=== PATIENT | male | born 1945 | race Caucasian/White ===

== ENCOUNTER 2018-07-19 16:59 | Emergency (ER) | payer OTHER ==
--- NOTE | 2018-07-19 17:11 | PDOC ---
Rapid Medical Evaluation Time Seen by Provider: 07/19/18 17:06 Medical Evaluation: Allergies Allergy/AdvReac Type Severity Reaction Status Date / Time No Known Allergies Allergy Verified 07/19/18 17:06 07/19/18 17:06 I have performed a brief in-person evaluation of the patient The patient presents with a chief complaint of: elevated blood pressure with headache at home Reports no dizziness, blurred vision or chest pressure Pertinent physical exam findings are: NAD HEENT: PERRLA, even and unlabored breathing no pedal edema I have ordered the following: The patient will proceed to the ED for further evaluation.
[2018-07-19 17:14] VITALS: TEMP 97.6; BMI 29.0
--- NOTE | 2018-07-19 17:24 | PDOC ---
History of Present Illness - General Chief Complaint: Blood Pressure Problem Stated Complaint: BLOOD PRESSURE PROBLEM Time Seen by Provider: 07/19/18 17:06 - History of Present Illness Initial Comments: 73 year old male with with history of HTN, IDDM, and anxiety presenting with elevated bp on home cuff readings and a light headache per the triage staff. Patient states that his only complaint is that this pressure was elevated because he frequently gets headaches in the mornings that resolve on their own. He States that he measured his bp 3-4 times at home and all measurements were around 200s systolic. His headache resolved by the time he presented to our department. His machine measures his pressure at the wrist. Denies any fevers, chills, nausea, vomiting, diarrhea, chest pain, visual symptoms, current headache, or other symptoms. He has good follow up with Dr. Bowers. 07/19/18 17:42 Past History - Past Medical History Allergies/Adverse Reactions: Allergies Allergy/AdvReac Type Severity Reaction Status Date / Time No Known Allergies Allergy Verified 07/19/18 17:06 Home Medications: Ambulatory Orders Atenolol [Tenormin -] 50 mg PO DAILY 04/23/14 Insulin Regular, Human [Humulin R -] 15 units SQ TID 04/23/14 Simvastatin [Zocor -] 40 mg PO HS 04/23/14 metFORMIN HCL [Glucophage -] 500 mg PO BID 04/23/14 Aspirin 81 mg PO DAILY 07/19/18 Cholecalciferol (Vitamin D3) [Vitamin D3 -] 1,000 unit PO DAILY 07/19/18 Cyanocobalamin [Vitamin B12 -] 1,000 mcg PO DAILY 07/19/18 Donepezil HCl [Aricept] 10 mg PO DAILY 07/19/18 Duloxetine HCl [Cymbalta -] 60 mg PO DAILY 07/19/18 Escitalopram Oxalate [Lexapro -] 30 mg PO DAILY 07/19/18 Insulin Glargine,Hum.rec.anlog [Lantus Solostar PEN (NF)] 15 units SQ TID LORazepam [Ativan] 1 mg PO ASDIR PRN 07/19/18 Anemia: No Asthma: No Cancer: No Cardiac Disorders: No CVA: No COPD: No CHF: No Dementia: No Diabetes: Yes (2002) GI Disorders: No Disorders: No HTN: Yes Hypercholesterolemia: Yes Liver Disease: No Seizures: No Thyroid Disease: No - Surgical History Abdominal Surgery: No Appendectomy: No Cardiac Surgery: No Cholecystectomy: No Lung Surgery: No Neurologic Surgery: No Orthopedic Surgery: No - Immunization History Immunization Up to Date: Yes - Suicide/Smoking/Psychosocial Hx Smoking Status: No Smoking History: Former smoker Have you smoked in the past 12 months: No Number of Cigarettes Smoked Daily: 0 If you are a former smoker, when did you quit?: 1980S Information on smoking cessation initiated: No Hx Alcohol Use: No Drug/Substance Use Hx: No Substance Use Type: None Hx Substance Use Treatment: No Review of Systems - Review of Systems Constitutional: No: Chills, Diaphoresis, Fever HEENTM: No: Blurred Vision, Tearing Respiratory: No: Cough, Orthopnea, Productive cough Cardiac (ROS): No: Chest Pain, Edema, Irregular Heart Rate ABD/GI: No: Constipated, Diarrhea, Nausea, Vomiting : No: Burning, Dysuria, Discharge, Hematuria Musculoskeletal: No: Back Pain, Joint Pain, Muscle Pain Integumentary: No: Erythema, Flushing, Lesions, Lumps Neurological: Yes: Headache. No: Numbness, Paresthesia Psychiatric: Yes: Anxiety. No: Emotional Problems Endocrine: No: Flushing, Intolerance to Cold Hematologic/Lymphatic: No: Anemia, Blood Clots *Physical Exam - Vital Signs Last Vital Signs Temp Pulse Resp BP Pulse Ox 97.6 F 54 L 18 159/82 97 07/19/18 17:08 07/19/18 17:08 07/19/18 17:08 07/19/18 17:08 07/19/18 17:08 - Physical Exam General Appearance: Yes: Nourished, Appropriately Dressed. No: Apparent Distress HEENT: positive: EOMI, ZEYNEP, Normal ENT Inspection, Normal Voice Neck: positive: Trachea midline, Normal Thyroid, Supple. negative: Tender, Rigid Respiratory/Chest: positive: Lungs Clear, Normal Breath Sounds. negative: Chest Tender, Respiratory Distress, Accessory Muscle Use Cardiovascular: positive: Regular Rhythm, Regular Rate Gastrointestinal/Abdominal: positive: Normal Bowel Sounds, Flat, Soft. negative : Tender Lymphatic: negative: Adenopathy, Tenderness Musculoskeletal: positive: Normal Inspection. negative: Decreased Range of Motion Extremity: positive: Normal Capillary Refill, Normal Inspection, Normal Range of Motion. negative: Tender Integumentary: positive: Normal Color, Dry, Warm Neurologic: positive: coating operator II-XII NML intact, Fully Oriented, Alert, Normal Mood/ Affect, Normal Response, Motor Strength /5 Medical Decision Making - Medical Decision Making 73 year old male presenting with elevated BPs at home with normal BPs here. Chelle feels perfectly well and his headache resolved on its own without intervention prior to presentation here. VSS here and very well appearing. Will DC home with follow up with Dr. Bowers. 07/19/18 18:02 *DC/Admit/Observation/Transfer Diagnosis at time of Disposition: Elevated blood pressure reading - Discharge Dispostion Disposition: HOME Condition at time of disposition: Improved Decision to Admit order: No - Referrals - Patient Instructions Printed Discharge Instructions: DI for High Blood Pressure, How to Monitor Your Blood Pressure at Home Additional Instructions: Please use a BP monitoring device that goes around your arm. Please follow up with Dr. Bowers next week. Please return to the ED if you have any new or worsening symptoms. - Post Discharge Activity
--- NOTE | 2018-07-19 17:54 | PDOC ---
Attending Attestation - Resident Resident Name: Anahi Chance - ED Attending Attestation I have performed the following: I have examined & evaluated the patient, The case was reviewed & discussed with the resident, I agree w/resident's findings & plan, Exceptions are as noted - Physicial Exam PE: 07/19/18 17:52 Patient is awake and alert, in no 3, no distress Normocephalic, atraumatic PERRLA, EOMI CTA RRR Cranial nerves II through XII grossly intact; motor is 5 of 54; no pronation drift, gait stable - Medical Decision Making 07/19/18 17:53 Patient 73-year-old male with history of insulin-dependent diabetes, hypertension and mood disorder presents with several elevated blood pressure measurements at home without evidence of end organ damage. In the ER, patient with blood pressure of 159-165 systolic with no acute symptoms. I do not suspect hypertensive emergency urgency. Patient advised to keep a log of his medications and follow-up with his PMD for reevaluation of his hypertensive regimen. Patient instructed to return for severe headache, blurry vision, nausea vomiting, chest pain. Patient expressed understanding. Will discharge <Elroy Palacios - Last Filed: 07/19/18 17:51> - HPI HPI: 07/19/18 17:55 The patient is a 73 year old male, with a significant past medical history of diabetes, hypertension, and mood disorder, hyperlipidemia, who presents to the emergency department with, elevated blood pressure and headache. As per patient , while at home he obtained multiple elevated systolic blood pressure measurement using a wrist cuff. He notes his headache is similar to his baseline morning headaches which, he is being worked up for with his PCP. <Etta Lane - Last Filed: 07/19/18 17:55> Attestations - Attestations 07/19/18 17:55 Documentation prepared by Etta Lane, acting as medical biller/coder for Elroy Palacios MD. <Etta Lane - Last Filed: 07/19/18 17:55>
[2018-07-19 18:20] VITALS: BP 151/86; PULSE 59
== END 2018-07-19 18:24 | disposition home or self-care (01) ==
LOC: JER 16:59
DX: Z01.31 Encounter for examination of blood pressure with abnormal findings (principal); Z87.891 Personal history of nicotine dependence; I10 Essential (primary) hypertension; E11.9 Type 2 diabetes mellitus without complications; E78.00 Pure hypercholesterolemia, unspecified
CPT/HCPCS: 99281-25

== ENCOUNTER 2018-08-10 16:46 | Inpatient (IN) | payer OTHER ==
--- NOTE | 2018-08-10 17:04 | PDOC ---
History of Present Illness - General Chief Complaint: Lightheaded Stated Complaint: DIZZINESS Time Seen by Provider: 08/10/18 16:51 History Source: Patient Exam Limitations: No Limitations - History of Present Illness Initial Comments: 08/10/18 17:08 Patient is a 73-year-old male with past medical history of diabetes, hypertension, dyslipidemia, prostate cancer status post resection, who presents to the emergency department today for headache, dizziness. Patient states he was sleeping when all of a sudden he had a sharp pain on the top of his head. He states that the pain woke him from sleep. He states that when he woke he felt that he could not find his words. He had his call an ambulance. He states that he now feels dizzy. He states that the headache has resolved and he feels that his speech is back to normal. Admits to nausea, weakness. Denies fevers, chills, shortness of breath, chest pain, vomiting, diarrhea, frequency and urgency. NIH Stroke Scale - Last Known Well Date/Time & Onset Date Last Known Well: 08/10/18 Time Last Known Well: 16:30 - Initial Evaluation Level of consciousness: Alert Ask patient the month and their age: Answers both correctly Ask patient to open & close eyes; make fist and let go: Obeys both correctly Best gaze (horizontal eye movement): Normal Visual field testing: No visual field loss Facial paresis (Show teeth/raise eyebrows/close eyes tight): Normal symmetrical movement Motor Function: Left Arm: Normal Motor Function: Right Arm: Normal (extends arm 90 (or 45) degrees for 10 seconds without drift Motor Function: Left Leg: Normal (extends leg 30 degrees for 5 seconds without drift) Motor Function: Right Leg: Normal (extends leg 30 degrees for 5 seconds without drift) Limb Ataxia: No ataxia Sensory(Use pinprick test arms,legs,trunk,face/side to side): Normal Best language (Describe picture, name items, read sentences): No Aphasia Dysarthria (read several words): Normal articulation Extinction and Inattention: No abnormality - Total Score NIH Stroke Scale Score: 0 Past History - Travel Traveled outside of the country in the last 30 days: No Close contact w/someone who was outside of country & ill: No - Past Medical History Allergies/Adverse Reactions: Allergies Allergy/AdvReac Type Severity Reaction Status Date / Time No Known Allergies Allergy Verified 08/10/18 16:47 Home Medications: Ambulatory Orders Atenolol [Tenormin -] 50 mg PO DAILY 04/23/14 Insulin Regular, Human [Humulin R -] 15 units SQ TID 04/23/14 Simvastatin [Zocor -] 40 mg PO HS 04/23/14 metFORMIN HCL [Glucophage -] 500 mg PO BID 04/23/14 Aspirin 81 mg PO DAILY 07/19/18 Cholecalciferol (Vitamin D3) [Vitamin D3 -] 1,000 unit PO DAILY 07/19/18 Cyanocobalamin [Vitamin B12 -] 1,000 mcg PO DAILY 07/19/18 Donepezil HCl [Aricept] 10 mg PO DAILY 07/19/18 Duloxetine HCl [Cymbalta -] 60 mg PO DAILY 07/19/18 Escitalopram Oxalate [Lexapro -] 30 mg PO DAILY 07/19/18 Insulin Glargine,Hum.rec.anlog [Lantus Solostar PEN (NF)] 15 units SQ TID Anemia: No Asthma: No Cancer: Yes (prostate) Cardiac Disorders: No CVA: No COPD: No CHF: No Dementia: No Diabetes: Yes (2002) GI Disorders: No Disorders: No HTN: Yes Hypercholesterolemia: Yes Liver Disease: No Seizures: No Thyroid Disease: No - Surgical History Abdominal Surgery: No Appendectomy: No Cardiac Surgery: No Cholecystectomy: No Lung Surgery: No Neurologic Surgery: No Orthopedic Surgery: No - Immunization History Immunization Up to Date: Yes - Suicide/Smoking/Psychosocial Hx Smoking Status: No Smoking History: Unknown if ever smoked Have you smoked in the past 12 months: No Number of Cigarettes Smoked Daily: 0 If you are a former smoker, when did you quit?: 1980S Hx Alcohol Use: No Drug/Substance Use Hx: No Substance Use Type: None Hx Substance Use Treatment: No Review of Systems - Review of Systems Able to Perform ROS?: Yes Comments:: 08/10/18 17:04 CONSTITUTIONAL: Absent: fever, chills, diaphoresis, generalized weakness, malaise, loss of appetite HEENT: Absent: rhinorrhea, nasal congestion, throat pain, throat swelling, difficulty swallowing, mouth swelling, ear pain, eye pain, visual Changes CARDIOVASCULAR: Absent: chest pain, loss of consciousness, palpitations, irregular heart rate, peripheral edema RESPIRATORY: Absent: cough, shortness of breath, dyspnea with exertion, orthopnea, wheezing, stridor, hemoptysis GASTROINTESTINAL: Present: nausea Absent: abdominal pain, abdominal distension, nausea, vomiting, diarrhea, constipation, melena, hematochezia GENITOURINARY: Absent: dysuria, frequency, urgency, hesitancy, hematuria, flank pain, genital pain MUSCULOSKELETAL: Absent: myalgia, arthralgia, joint swelling SKIN: Absent: rash, itching, pallor HEMATOLOGIC/IMMUNOLOGIC: Absent: easy bleeding, easy bruising, lymphadenopathy, frequent infections ENDOCRINE: Absent: unexplained weight gain, unexplained weight loss, heat intolerance, cold intolerance NEUROLOGIC: Present: headache, dizziness Absent: headache, focal weakness or paresthesias, dizziness, unsteady gait, seizure, mental status changes, bladder or bowel incontinence PSYCHIATRIC: Absent: anxiety, depression, suicidal or homicidal ideation, hallucinations. Is the patient limited [place] proficient: No *Physical Exam - Vital Signs Last Vital Signs Temp Pulse Resp BP Pulse Ox 97.9 F 58 L 16 131/69 98 08/10/18 16:47 08/10/18 16:47 08/10/18 16:47 08/10/18 16:47 08/10/18 16:47 - Physical Exam Comments: 08/10/18 17:04 GENERAL: Well developed, well nourished. Awake and alert. No acute distress. HEENT: Normocephalic, atraumatic. PERRLA, EOMI. No conjunctival pallor. Sclera are non- icteric. Moist mucous membranes. Oropharynx is clear. NECK: Supple. Full ROM. No JVD. Carotid pulses 2+ and symmetric, without bruits. No thyromegaly. No lymphadenopathy. CARDIOVASCULAR: Regular rate and rhythm. No murmurs, rubs, or gallops. Distal pulses are 2+ and symmetric. PULMONARY: No evidence of respiratory distress. Lungs clear to auscultation bilaterally. No wheezing, rales or rhonchi. ABDOMINAL: Soft. Non-tender. Non-distended. No rebound or guarding. No organomegaly. Normoactive bowel sounds. MUSCULOSKELETAL Normal range of motion at all joints. No bony deformities or tenderness. No CVA tenderness. EXTREMITIES: No cyanosis. No clubbing. No edema. No calf tenderness. SKIN: Warm and dry. Normal capillary refill. No rashes. No jaundice. NEUROLOGICAL: Alert, awake, appropriate. Cranial nerves 2-12 intact. No deficits to light touch and temperature in face, upper extremities and lower extremities. No motor deficits in the in face, upper extremities and lower extremities. Normoreflexic in the upper and lower extremities. Normal speech. Toes are down- going bilaterally. Gait is normal without ataxia. PSYCHIATRIC: Cooperative. Good eye contact. Appropriate mood and affect. ED Treatment Course - LABORATORY CBC & Chemistry Diagram: 08/10/18 17:15 08/10/18 17:15 Medical Decision Making - Medical Decision Making 08/10/18 17:11 Patient is a 73-year-old male with past medical history of diabetes, hypertension, dyslipidemia, prostate cancer status post resection, who presents to the emergency department today for headache, dizziness. -DDX: TIA, headache, vertigo, dehydration, less likely ACS, DKA -Currently with a normal neuro exam. NIH score 0 at this time. -Headache has currently resolved. Pt admits to being weak -Broad work up including labs, CT head, IV fluids, cardiac monitoring and EKG 08/10/18 18:26 -Pt still currently asymptomatic in the ED -Head CT negative for bleed, mass, ischemia. -Lab work unremarkable. Trop negative. -Still pending EKG -No new events since ED arrival -Possible TIA -Paged Dr. Bowers for TIA obs given risk factors. -Sign out given to Maria Victoria AGUIRRE. Pt pending EKG and call back from PCP Dr. Bowers for obs placement *DC/Admit/Observation/Transfer Diagnosis at time of Disposition: Altered mental state Qualifiers: Altered mental status type: unspecified Qualified Code(s): R41.82 - Altered mental status, unspecified Headache Qualifiers: Headache type: unspecified Headache chronicity pattern: chronic headache Intractability: not intractable Qualified Code(s): R51 - Headache - Discharge Dispostion Condition at time of disposition: Stable - Referrals - Patient Instructions - Post Discharge Activity
[2018-08-10] MEDS ORDERED: MECLIZINE HCL 25 MG TABLET (FP) PO ONE (17:06)
[2018-08-10] MEDS ORDERED: SODIUM CHLORIDE 1,000 ML IV STA (17:15)
[2018-08-10] MEDS ORDERED: MECLIZINE HCL 25 MG TABLET (FP) ONE (17:28)
[2018-08-10 17:29] LABS: BASO % 0.6 % (0-2.0); EOS % 1.4 % (0-4.5); HEMATOCRIT 41.6 % (35.4-49); LYMPH % 35.7 % (8-40); MCH 29.9 pg (25.7-33.7); MCHC 33.6 g/dl (32.0-35.9); MEAN CELL VOLUME 89.1 fl (80-96); MEAN PLT VOLUME 8.7 fl (7.5-11.1); MONO % 7.1 % (3.8-10.2); NEUT % 55.2 % (42.8-82.8); PLATELET COUNT 328 K/MM3 (134-434); RBC 4.67 M/mm3 (4.00-5.60); RDW 13.1 % (11.9-15.9); WHITE BLOOD COUNT 8.7 K/mm3 (4.0-10.0)
[2018-08-10 17:43] LABS: INR 1.01 (0.83-1.09); PROTHROMBIN TIME (PATIENT) 11.9 SEC (9.7-13.0)
[2018-08-10 18:17] LABS: ALBUMIN 3.9 g/dl (3.4-5.0); ALK PHOS 71 U/L (45-117); ANION GAP 9 MMOL/L (8-16); BILIRUBIN,TOTAL 0.3 mg/dL (0.2-1); BLOOD UREA NITROGEN 16 mg/dL (7-18); CALCIUM 9.2 mg/dL (8.5-10.1); CHLORIDE 105 mmol/L (98-107); CO2 25 mmol/L (21-32); CREATININE 0.9 mg/dL (0.55-1.3); GLUCOSE,RANDOM 116 mg/dL (74-106); MAGNESIUM 2.4 mg/dL (1.8-2.4); POTASSIUM 4.4 mmol/L (3.5-5.1); SGOT/AST 35 U/L (15-37); SGPT/ALT 35 U/L (13-61); SODIUM 139 mmol/L (136-145); TOT PROT 7.2 g/dl (6.4-8.2)
--- NOTE | 2018-08-10 20:30 | PDOC ---
*Physical Exam - Vital Signs Last Vital Signs Temp Pulse Resp BP Pulse Ox 97.9 F 53 L 20 143/74 98 08/10/18 16:47 08/10/18 19:30 08/10/18 19:30 08/10/18 19:30 08/10/18 19:47 - Physical Exam Comments: 08/10/18 19:13 Sign-out received from outgoing ER provider Dimas. Pt interviewed and examined. Ancillary studies reviewed. Patient's CKMB incidentally elevated to 5.3. Will admit to obs for possible TIA and r/o ACS. Awaiting EKG, callback from [facility]. CXR ordered for admission. 08/10/18 20:10 Called [facility] again, awaiting callback. EKG - sinus leann 08/10/18 20:[address] Bowers's cell phone. Will admit to hospitalist given multiple attempts to reach PCP without response. 08/10/18 21:[address] Levy, accepted to obs. ED Treatment Course - LABORATORY CBC & Chemistry Diagram: 08/10/18 17:15 08/10/18 17:15 - ADDITIONAL ORDERS Additional order review: Laboratory Results 08/10/18 08/10/18 17:15 17:15 PT with INR 11.90 INR 1.01 Sodium 139 Potassium 4.4 Chloride 105 Carbon Dioxide 25 Anion Gap 9 BUN 16 Creatinine 0.9 Creat Clearance w eGFR > 60 Random Glucose 116 H Calcium 9.2 Magnesium 2.4 Total Bilirubin 0.3 AST 35 ALT 35 Alkaline Phosphatase 71 Creatine Kinase 213 Creatine Kinase Index 2.4 CK-MB (CK-2) 5.3 H Troponin I < 0.02 Total Protein 7.2 Albumin 3.9 08/10/18 17:15 RBC 4.67 MCV 89.1 MCHC 33.6 RDW 13.1 MPV 8.7 Neutrophils % 55.2 Lymphocytes % 35.7 D Monocytes % 7.1 Eosinophils % 1.4 Basophils % 0.6 - RADIOLOGY Radiology Studies Ordered: Category Date Time Status CHEST PA & LAT [RAD] Stat Radiology 08/10/18 19:51 Ordered - Medications Given in the ED: ED Medications Discontinued Medications Generic Name Dose Route Start Last Admin Trade Name Freq PRN Reason Stop Dose Admin Sodium Chloride 1,000 mls @ 1,000 mls/hr 08/10/18 17:15 08/10/18 17:32 Normal Saline - IV 08/10/18 18:14 1,000 mls/hr ASDIR STA Administration Meclizine HCl 25 mg 08/10/18 17:06 08/10/18 17:32 Antivert - PO 08/10/18 17:07 25 mg ONCE ONE Administration *DC/Admit/Observation/Transfer Diagnosis at time of Disposition: Altered mental state Qualifiers: Altered mental status type: unspecified Qualified Code(s): R41.82 - Altered mental status, unspecified Headache Qualifiers: Headache type: unspecified Headache chronicity pattern: chronic headache Intractability: not intractable Qualified Code(s): R51 - Headache - Discharge Dispostion Condition at time of disposition: Stable Decision to Admit order: Yes - Referrals Referrals: Yenifer Bowers MD [Primary Care Provider] - - Patient Instructions - Post Discharge Activity
[2018-08-10 20:42] LABS: URINE APPEARANCE CLEAR; URINE BILIRUBIN NEGATIVE (<2.0 mg/dL); URINE COLOR STRAW; URINE GLUCOSE (UA) NEGATIVE (NEGATIVE); URINE KETONE NEGATIVE (NEGATIVE); URINE LEUK ESTERASE NEGATIVE (NEGATIVE); URINE NITRITE NEGATIVE (NEGATIVE); URINE PROTEIN NEGATIVE (NEGATIVE); URINE UROBILINOGEN NEGATIVE mg/dL (0.2-1.0)
--- NOTE | 2018-08-10 22:15 | HP ---
CHIEF COMPLAINT: PCP: HISTORY OF PRESENT ILLNESS: ER course was notable for: (1) (2) (3) Recent Travel: PAST MEDICAL HISTORY: PAST SURGICAL HISTORY: Social History: Smoking: Alcohol: Drugs: Family History: Allergies No Known Allergies Allergy (Verified 08/10/18 16:47) HOME MEDICATIONS: Home Medications Medication Instructions Recorded Atenolol [Tenormin -] 50 mg PO DAILY 04/23/14 Insulin Regular, Human [Humulin R 15 units SQ TID 04/23/14 -] Simvastatin [Zocor -] 40 mg PO HS 04/23/14 metFORMIN HCL [Glucophage -] 500 mg PO BID 04/23/14 Aspirin 81 mg PO DAILY 07/19/18 Cholecalciferol (Vitamin D3) 1,000 unit PO DAILY 07/19/18 [Vitamin D3 -] Cyanocobalamin [Vitamin B12 -] 1,000 mcg PO DAILY 07/19/18 Donepezil HCl [Aricept] 10 mg PO DAILY 07/19/18 Duloxetine HCl [Cymbalta -] 60 mg PO DAILY 07/19/18 Escitalopram Oxalate [Lexapro -] 30 mg PO DAILY 07/19/18 Insulin Glargine,Hum.rec.anlog 15 units SQ TID 07/19/18 [Lantus Solostar PEN (NF)] REVIEW OF SYSTEMS CONSTITUTIONAL: Absent: fever, chills, diaphoresis, generalized weakness, malaise, loss of appetite, weight change HEENT: Absent: rhinorrhea, nasal congestion, throat pain, throat swelling, difficulty swallowing, mouth swelling, ear pain, eye pain, visual changes CARDIOVASCULAR: Absent: chest pain, syncope, palpitations, irregular heart rate, lightheadedness , peripheral edema RESPIRATORY: Absent: cough, shortness of breath, dyspnea with exertion, orthopnea, wheezing, stridor, hemoptysis GASTROINTESTINAL: Absent: abdominal pain, abdominal distension, nausea, vomiting, diarrhea, constipation, melena, hematochezia GENITOURINARY: Absent: dysuria, frequency, urgency, hesitancy, hematuria, flank pain, genital pain MUSCULOSKELETAL: Absent: myalgia, arthralgia, joint swelling, back pain, neck pain SKIN: Absent: rash, itching, pallor HEMATOLOGIC/IMMUNOLOGIC: Absent: easy bleeding, easy bruising, lymphadenopathy, frequent infections ENDOCRINE: Absent: unexplained weight gain, unexplained weight loss, heat intolerance, cold intolerance NEUROLOGIC: Absent: headache, focal weakness or paresthesias, dizziness, unsteady gait, seizure, mental status changes, bladder or bowel incontinence PSYCHIATRIC: Absent: anxiety, depression, suicidal or homicidal ideation, hallucinations. PHYSICAL EXAMINATION Vital Signs - 24 hr 08/10/18 08/10/18 08/10/18 16:47 19:30 19:47 Temperature 97.9 F Pulse Rate 58 L Pulse Rate [ 53 L Radial] Respiratory 16 20 Rate Blood Pressure 131/69 Blood Pressure 143/74 [Left] O2 Sat by Pulse 98 97 98 Oximetry (%) 08/10/18 20:37 Temperature Pulse Rate Pulse Rate [ 57 L Radial] Respiratory 20 Rate Blood Pressure Blood Pressure 168/66 [Left] O2 Sat by Pulse 97 Oximetry (%) GENERAL: Awake, alert, and fully oriented, in no acute distress. HEAD: Normal with no signs of trauma. EYES: Pupils equal, round and reactive to light, extraocular movements intact, sclera anicteric, conjunctiva clear. No lid lag. EARS, NOSE, THROAT: Ears normal, nares patent, oropharynx clear without exudates. Moist mucous membranes. NECK: Normal range of motion, supple without lymphadenopathy, JVD, or masses. LUNGS: Breath sounds equal, clear to auscultation bilaterally. No wheezes, and no crackles. No accessory muscle use. HEART: Regular rate and rhythm, normal S1 and S2 without murmur, rub or gallop. ABDOMEN: Soft, nontender, not distended, normoactive bowel sounds, no guarding, no rebound, no masses. No hepatomegaly or splenomegaly. MUSCULOSKELETAL: Normal range of motion at all joints. No bony deformities or tenderness. No CVA tenderness. UPPER EXTREMITIES: 2+ pulses, warm, well-perfused. No cyanosis. No clubbing. No peripheral edema. LOWER EXTREMITIES: 2+ pulses, warm, well-perfused. No calf tenderness. No peripheral edema. NEUROLOGICAL: Cranial nerves II-XII intact. Normal speech. Normal gait. PSYCHIATRIC: Cooperative. Good eye contact. Appropriate mood and affect. SKIN: Warm, dry, normal turgor, no rashes or lesions noted, normal capillary refill. Laboratory Results - last 24 hr 08/10/18 08/10/18 08/10/18 17:07 17:15 17:15 WBC 8.7 RBC 4.67 Hgb 14.0 Hct 41.6 MCV 89.1 MCH 29.9 MCHC 33.6 RDW 13.1 Plt Count 328 MPV 8.7 Absolute Neuts (auto) 4.8 Neutrophils % 55.2 Lymphocytes % 35.7 D Monocytes % 7.1 Eosinophils % 1.4 Basophils % 0.6 Nucleated RBC % 0 PT with INR INR Sodium 139 Potassium 4.4 Chloride 105 Carbon Dioxide 25 Anion Gap 9 BUN 16 Creatinine 0.9 Creat Clearance w eGFR > 60 Random Glucose 116 H Calcium 9.2 Magnesium 2.4 Total Bilirubin 0.3 AST 35 ALT 35 Alkaline Phosphatase 71 Creatine Kinase 213 Creatine Kinase Index 2.4 CK-MB (CK-2) 5.3 H Troponin I < 0.02 Total Protein 7.2 Albumin 3.9 Urine Color Straw Urine Appearance Clear Urine pH 7.0 Ur Specific [place] 1.006 L Urine Protein Negative Urine Glucose (UA) Negative Urine Ketones Negative Urine Blood Negative Urine Nitrite Negative Urine Bilirubin Negative Urine Urobilinogen Negative Ur Leukocyte Esterase Negative 08/10/18 08/10/18 17:15 21:30 WBC RBC Hgb Hct MCV MCH MCHC RDW Plt Count MPV Absolute Neuts (auto) Neutrophils % Lymphocytes % Monocytes % Eosinophils % Basophils % Nucleated RBC % PT with INR 11.90 INR 1.01 Sodium Potassium Chloride Carbon Dioxide Anion Gap BUN Creatinine Creat Clearance w eGFR Random Glucose Calcium Magnesium Total Bilirubin AST ALT Alkaline Phosphatase Creatine Kinase 235 Creatine Kinase Index CK-MB (CK-2) Troponin I < 0.02 Total Protein Albumin Urine Color Urine Appearance Urine pH Ur Specific [place] Urine Protein Urine Glucose (UA) Urine Ketones Urine Blood Urine Nitrite Urine Bilirubin Urine Urobilinogen Ur Leukocyte Esterase ASSESSMENT/PLAN:
[2018-08-10] MEDS ORDERED: ASPIRIN COATED 81 MG TABLET.EC PO ONE (22:45)
[2018-08-11] MEDS ORDERED: MELATONIN 5 MG TABLETS PO ONE (02:30)
[2018-08-11] MEDS ORDERED: diphenhydrAMINE HCL 25 MG CAPSULE (FP) PO ONE (02:30)
[2018-08-11] MEDS: ACETAMINOPHEN 325 MG TABLET (FP) PO PRN (02:36)
[2018-08-11] MEDS: INSULIN SLIDING SCALE (NOVOLOG) 1 VIAL SQ SCH ×5 (02:38→21:42)
[2018-08-11 04:19] VITALS: BMI 29.0
[2018-08-11] MEDS: metFORMIN HCL 500 MG TABLET (FP) PO SCH ×2 (06:53→17:44)
[2018-08-11 07:11] LABS: CHOLESTEROL 135 mg/dL (50-200); HDL CHOLESTEROL 39 mg/dL (40-60); TRIGLYCERIDES 240 mg/dL (0-150)
[2018-08-11] MEDS: amLODIPine BESYLATE 10 MG TABLET (FP) PO SCH (09:47)
[2018-08-11] MEDS ORDERED: ATENOLOL 25 MG TABLET (FP) PO SCH (10:00)
[2018-08-11] MEDS ORDERED: ASPIRIN COATED 81 MG TABLET.EC PO SCH (10:00)
--- NOTE | 2018-08-11 10:51 | HP ---
Admitting History and Physical - Admission Chief Complaint: severe headache yesterday afternoon,associated with anomia and generalized weakness History of Present Illness: 73 yo male with PMH of poorly controlled and labile HTN,also diabetic with the most recent HbA1 C 6.7 and today 6.9 presented to ER yesterday afternoon with extreme headache which woke him up from his afternoon sleep. His headache was severe and associated with inability to find words or move the entire body. He recovered within approxim 5 minutes. EMS was activated and found a BP of 150, with normal glycemic levels. The patient has beem compalinig of dizziness and headahes for the past week but this was also associated with symptoms of nasal congestion. armando CT scan performed yesterday was negtaove for acute events. The patient is taking Aspirin 81 mg daily. In general th patient noticed that his memory is very poor and declining quickly. He has h/-o prostate Ca and is s/p total prostatectomy with the last PSA in April 2018 of less than 0.1 History Source: Patient, Family Member () Limitations to Obtaining History: No Limitations - Past Medical History MRI CT TECH: Yes: Peripheral Neuropathy Cardiovascular: Yes: HTN, Hyperlipdemia Gastrointestinal: Yes: Constipation Renal/: Yes: BPH, Cancer (prostate cancer) Psych: Yes: Bipolar ENT: Yes: Allergic Rhinitis, Sinusitis Endocrine: Yes: Diabetes Mellitus - Past Surgical History Past Surgical History: Yes: Prostatectomy - Smoking History Smoking history: Unknown if ever smoked Have you smoked in the past 12 months: No Aproximately how many cigarettes per day: 0 If you are a former smoker, when did you quit?: 1980S - Alcohol/Substance Use Hx Alcohol Use: No - Social History Usual Living Arrangement: Yes: With Spouse ADL: Independent History of Recent Travel: No Home Medications - Allergies Allergies/Adverse Reactions: Allergies Allergy/AdvReac Type Severity Reaction Status Date / Time No Known Allergies Allergy Verified 08/10/18 16:47 - Home Medications Home Medications: Ambulatory Orders Atenolol [Tenormin -] 50 mg PO DAILY 04/23/14 Insulin Regular, Human [Humulin R -] 15 units SQ TID 04/23/14 Simvastatin [Zocor -] 40 mg PO HS 04/23/14 metFORMIN HCL [Glucophage -] 500 mg PO BID 04/23/14 Aspirin 81 mg PO DAILY 07/19/18 Cholecalciferol (Vitamin D3) [Vitamin D3 -] 1,000 unit PO DAILY 07/19/18 Cyanocobalamin [Vitamin B12 -] 1,000 mcg PO DAILY 07/19/18 Donepezil HCl [Aricept] 10 mg PO DAILY 07/19/18 Duloxetine HCl [Cymbalta -] 60 mg PO DAILY 07/19/18 Escitalopram Oxalate [Lexapro -] 30 mg PO DAILY 07/19/18 Insulin Glargine,Hum.rec.anlog [Lantus Solostar PEN (NF)] 15 units SQ TID Review of Systems - Review of Systems Constitutional: reports: Other (headaches, and recurent dizziness recently) Eyes: reports: No Symptoms HENT: reports: No Symptoms Neck: reports: No Symptoms Respiratory: reports: No Symptoms Gastrointestinal: reports: Constipation Genitourinary: reports: Frequency, Incontinence Breasts: reports: No Symptoms Reported Neurological: reports: Change in Speech (yesterday , recoveverd to my examination today), Weakness (yesterday when EMS was acivated) Physical Examination Vital Signs: Vital Signs Temperature 98.4 F 08/11/18 06:38 Pulse Rate 56 L 08/11/18 06:38 Respiratory Rate 18 08/11/18 06:38 Blood Pressure 155/66 08/11/18 06:38 O2 Sat by Pulse Oximetry (%) 98 08/11/18 06:38 Constitutional: Yes: No Distress, Calm Eyes: Yes: Conjunctiva Clear, EOM Intact HENT: Yes: Atraumatic, Normocephalic Neck: Yes: Supple, Trachea Midline Cardiovascular: Yes: Regular Rate and Rhythm (60 b/ min to my examination), S1, S2 Respiratory: Yes: Regular, CTA Bilaterally, On Nasal O2 Gastrointestinal: Yes: Normal Bowel Sounds, Soft, Abdomen, Obese. No: Distention, Hepatomegaly, Splenomegaly, Tenderness, Tenderness, Epigastrium, Tenderness, Rebound Labs: CBC, BMP 08/10/18 17:15 08/10/18 17:15 Imaging - Results Chest X-ray: Other (read by me: no masses, pleutral effusion or infiltrates) Cat Scan: Other (no acute intracranial events) Problem List - Problems (1) TIA (transient ischemic attack) Assessment/Plan: aspirin 81 mg daily control BP monitor hr FOR EXTENEDED pauses carotid Doppler and ECHO Code(s): G45.9 - TRANSIENT CEREBRAL ISCHEMIC ATTACK, UNSPECIFIED (2) HTN (hypertension) Assessment/Plan: D/c Atenolo =ue to Mobitz II start QUINCY inhibitor Accupril Code(s): I10 - ESSENTIAL (PRIMARY) HYPERTENSION (3) Hypertriglyceridemia Assessment/Plan: add Niacin, on Simvastatin, Lipitor in hospital Code(s): E78.1 - PURE HYPERGLYCERIDEMIA (4) Headache Assessment/Plan: related to sinus congestion? Code(s): R51 - HEADACHE Qualifiers: Headache type: unspecified Headache chronicity pattern: chronic headache Intractability: not intractable Qualified Code(s): R51 - Headache (5) Bradyarrhythmia Assessment/Plan: discontinued Atenolol and on Holter as per Cardiology Code(s): I49.8 - OTHER SPECIFIED CARDIAC ARRHYTHMIAS (6) Diabetes Assessment/Plan: lantus on hold and BGM's AC HS to monitor for hypoglicemia and reassess the total amount of insulin required in 24 hours continue Glucophage Code(s): E11.9 - TYPE 2 DIABETES MELLITUS WITHOUT COMPLICATIONS Qualifiers: Diabetes mellitus type: type 2 Diabetes mellitus complication status: with neurologic complications Diabetes mellitus complication detail: with polyneuropathy (7) Allergic rhinitis Assessment/Plan: start nasonex nasal spray at hs and claritin daily Code(s): J30.9 - ALLERGIC RHINITIS, UNSPECIFIED (8) Constipation Assessment/Plan: colace 200 mg at HS Code(s): K59.00 - CONSTIPATION, UNSPECIFIED (9) Bipolar disorder Assessment/Plan: Escitalopram Code(s): F31.9 - BIPOLAR DISORDER, UNSPECIFIED (10) Prostate cancer Assessment/Plan: PSA in April 2018 less then 0.1 Code(s): C61 - MALIGNANT NEOPLASM OF PROSTATE (11) Elevated CK-MB level Assessment/Plan: related to combination Niacin- Simvastatin? Code(s): R74.8 - ABNORMAL LEVELS OF OTHER SERUM ENZYMES
--- NOTE | 2018-08-11 10:55 | CON.CARD ---
Consult Consult Specialty:: Cardiology Referred by:: Dr. Yenifer Bowers Reason for Consultation:: Cardiac evaluation - History of Present Illness Chief Complaint: Dizziness History of Present Illness: Patient is a 73 year old male with underlying history of HTN, hypercholesterolemia and Insulin requiring DM who presents with complaints of dizziness and headache. He also has history of prostate CA s/p resection. He was sleeping yesterday when he suddenly had sharp pain on the top of his head and when he woke up, he could not speak properly and told his to call 911. He states that his speech returned within 5-10 min and headache was resolved. He also complained of "sharp" chest tightness. Denies SOB or palpitations. Denies paroxysmal nocturnal dyspnea or orthopnea. Denies fever or chills. Denies headache or dizziness this morning. He has not had syncope in the past and this time, he is not sure whether he actually passed out. architectural designer reveals sinus rhythm with frequent pauses, but it appears to be secondary AV block Mobitz 1 ([place]). Denies nausea, vomiting, diarrhea or abdominal pain. Cardiology consultation was requested. He was seen by another welder production line combination in [place] (Dr. Dwayne Thomas, welder production line combination with [facility]) about 1 year ago and had stress testing and echocardiography. - History Source History Provided By: Patient, Medical Record Limitations to Obtaining History: No Limitations - Past Medical History Cardio/Vascular: Yes: HTN, Hyperlipdemia Renal/: Yes: Cancer (Prostate CA) Endocrine: Yes: Diabetes Mellitus - Past Surgical History Past Surgical History: Yes: Prostatectomy - Alcohol/Substance Use Hx Alcohol Use: No - Smoking History Smoking history: Former smoker Have you smoked in the past 12 months: No Aproximately how many cigarettes per day: 0 Home Medications - Allergies Allergies/Adverse Reactions: Allergies Allergy/AdvReac Type Severity Reaction Status Date / Time No Known Allergies Allergy Verified 08/10/18 16:47 - Home Medications Home Medications: Ambulatory Orders Atenolol [Tenormin -] 50 mg PO DAILY 04/23/14 Insulin Regular, Human [Humulin R -] 15 units SQ TID 04/23/14 Simvastatin [Zocor -] 40 mg PO HS 04/23/14 metFORMIN HCL [Glucophage -] 500 mg PO BID 04/23/14 Aspirin 81 mg PO DAILY 07/19/18 Cholecalciferol (Vitamin D3) [Vitamin D3 -] 1,000 unit PO DAILY 07/19/18 Cyanocobalamin [Vitamin B12 -] 1,000 mcg PO DAILY 07/19/18 Donepezil HCl [Aricept] 10 mg PO DAILY 07/19/18 Duloxetine HCl [Cymbalta -] 60 mg PO DAILY 07/19/18 Escitalopram Oxalate [Lexapro -] 30 mg PO DAILY 07/19/18 Insulin Glargine,Hum.rec.anlog [Lantus Solostar PEN (NF)] 15 units SQ TID Family Disease History - Family Disease History Family Disease History: CA: Father (Pancreatic CA), Mother (Brain CA), Sister ( Lung CA) Review of Systems - Review of Systems Constitutional: denies: Chills, Fever Cardiovascular: reports: Palpitations. denies: Chest Pain, Shortness of Breath Respiratory: denies: Cough, Hemoptysis, Orthopnea, PND, SOB, SOB on Exertion Genitourinary: denies: Dysuria, Hematuria Musculoskeletal: denies: Back Pain, Joint Pain Neurological: reports: Change in Speech, Dizziness, Headache. denies: Seizure, Syncope, Tremors, Unsteady Gait Vital Signs: Vital Signs Temperature 98.4 F 08/11/18 06:38 Pulse Rate 56 L 08/11/18 06:38 Respiratory Rate 18 08/11/18 06:38 Blood Pressure 155/66 08/11/18 06:38 O2 Sat by Pulse Oximetry (%) 98 08/11/18 06:38 Eyes: Yes: PERRL HENT: Yes: Atraumatic Neck: Yes: Supple Respiratory: Yes: CTA Bilaterally Gastrointestinal: Yes: Normal Bowel Sounds, Soft. No: Tenderness Cardiovascular: Yes: Regular Rate and Rhythm JVD: No Carotid Bruit: No PMI: Non-Displaced Heart Sounds: Yes: S1, S2. No: Gallop Murmur: No: Systolic Murmur, Diastolic Murmur Edema: No - Other Data Labs, Other Data: CBC, BMP 08/10/18 17:15 08/10/18 17:15 INR, PTT INR 1.01 (0.83-1.09) 08/10/18 17:15 Troponin, BNP 08/10/18 08/10/18 08/11/18 17:15 21:30 05:30 Troponin I < 0.02 < 0.02 < 0.02 Sinus [address] with no ST-T abnormality Imaging - Results Chest X-ray: Report Reviewed (Unremarkable) Cat Scan: Report Reviewed (Head CT unremarkable) EKG: Report Reviewed Problem List - Problems (1) Diabetes Code(s): E11.9 - TYPE 2 DIABETES MELLITUS WITHOUT COMPLICATIONS Qualifiers: Diabetes mellitus type: type 2 Diabetes mellitus complication status: with neurologic complications Diabetes mellitus complication detail: with polyneuropathy (2) HTN (hypertension) Code(s): I10 - ESSENTIAL (PRIMARY) HYPERTENSION (3) Hypertriglyceridemia Code(s): E78.1 - PURE HYPERGLYCERIDEMIA (4) Prostate cancer Code(s): C61 - MALIGNANT NEOPLASM OF PROSTATE (5) TIA (transient ischemic attack) Code(s): G45.9 - TRANSIENT CEREBRAL ISCHEMIC ATTACK, UNSPECIFIED Assessment/Plan 1. Dizziness and headache with possible near syncope vs. TIA 2. HTN 3. Sinus bradycardia with periods of Mobitz 1 [place] 4. Hypercholesterolemia 5. DM 6. History of prostate CA PLAN: 1. Hold Atenolol and monitor on telemetry 2. Continue Amlodipine and consider starting ACEI or ARB (spoke with Dr. Bowers ) 3. Continue ASA 4. Continue Atorvastatin 5. Echocardiography to assess LV/RV and valvular function 6. Carotid Doppler Further plans are to follow Marc Paul MD
--- NOTE | 2018-08-11 11:06 | EKG ---
Test Reason : Blood Pressure : / mmHG Vent. Rate : 057 BPM Atrial Rate : 057 BPM P-R Int : 194 ms QRS Dur : 092 ms QT Int : 440 ms P-R-T Axes : 071 062 060 degrees QTc Int : 428 ms SINUS BRADYCARDIA OTHERWISE NORMAL ECG WHEN COMPARED WITH ECG OF 10-AUG-2018 18:41, NO SIGNIFICANT CHANGE WAS FOUND Reconfirmed by MARCELO BARTH, INES ([id number]), editor trade journal LILLIAN BIGGS ([id number]) on 08/11/2018 2:10:26 PM Referred By: Yancy TRAN Confirmed By:INES ROBERTSON MD
[2018-08-11] MEDS: ASPIRIN 81 MG CHEWABLE TABLETS PO SCH (11:07)
--- NOTE | 2018-08-11 11:10 | EKG ---
Test Reason : Blood Pressure : / mmHG Vent. Rate : 050 BPM Atrial Rate : 050 BPM P-R Int : 172 ms QRS Dur : 096 ms QT Int : 488 ms P-R-T Axes : 067 060 054 degrees QTc Int : 444 ms SINUS BRADYCARDIA OTHERWISE NORMAL ECG WHEN COMPARED WITH ECG OF 15-JAN-2016 21:52, NO SIGNIFICANT CHANGE WAS FOUND Confirmed by INES ROBERTSON MD ([id number]) on 08/11/2018 11:10:04 AM Referred By: Confirmed By:INES ROBERTSON MD
[2018-08-11] MEDS ORDERED: NIACIN 500 MG TABLET PO SCH (11:30)
[2018-08-11] MEDS ORDERED: PT OWN MED DRAWER 7, Y5N ONE ×3 (13:10→18:20)
[2018-08-11] MEDS: LORATADINE 10 MG TABLET PO SCH (13:15)
[2018-08-11] MEDS: ESCITALOPRAM OXALATE 10 MG TABLET (FP) PO SCH (13:15)
--- NOTE | 2018-08-11 13:34 | CON.NEURO ---
Consult Consult Specialty:: NEUROLOGY-MATTHEW BARTH Reason for Consultation:: KELLER and difficulty speaking - History of Present Illness History of Present Illness: 73 yo male with PMH of poorly controlled and labile HTN,also diabetic with the most recent HbA1 C 6.7 and today 6.9 presented to ER yesterday afternoon with severe vertex headache which woke him up from his afternoon nap. His headache was severe and associated with inability to find words or move the entire body. He recovered within approxim 5 minutes. EMS was activated and found a BP of 150? / systolic, with normal glycemic levels. The patient has been compalinig of dizziness and headahes for the past week but this was also associated with symptoms of nasal congestion. CT scan performed yesterday was negtive for acute events. The patient is taking Aspirin 81 mg daily. In general th patient noticed that his memory is very poor and declining quickly. He has h/-o prostate Ca and is s/p total prostatectomy with the last PSA in April 2018 of less than 0.1 Denies hx. of similar KELLER in past - History Source History Provided By: Patient - Past Medical History CUSTOMER ACCOUNT REPRESENTATIVE: Yes: Peripheral Neuropathy Cardio/Vascular: Yes: HTN, Hyperlipdemia Gastrointestinal: Yes: Constipation Renal/: Yes: BPH, Cancer (prostate cancer) Psych: Yes: Bipolar ENT: Yes: Allergic Rhinitis, Sinusitis Endocrine: Yes: Diabetes Mellitus - Past Surgical History Past Surgical History: Yes: Prostatectomy - Alcohol/Substance Use Hx Alcohol Use: No - Smoking History Smoking history: Unknown if ever smoked Have you smoked in the past 12 months: No Aproximately how many cigarettes per day: 0 If you are a former smoker, when did you quit?: 1980S - Social History ADL: Independent History of Recent Travel: No Home Medications - Allergies Allergies/Adverse Reactions: Allergies Allergy/AdvReac Type Severity Reaction Status Date / Time No Known Allergies Allergy Verified 08/10/18 16:47 - Home Medications Home Medications: Ambulatory Orders Atenolol [Tenormin -] 50 mg PO DAILY 04/23/14 Insulin Regular, Human [Humulin R -] 15 units SQ TID 04/23/14 Simvastatin [Zocor -] 40 mg PO HS 04/23/14 metFORMIN HCL [Glucophage -] 500 mg PO BID 04/23/14 Aspirin 81 mg PO DAILY 07/19/18 Cholecalciferol (Vitamin D3) [Vitamin D3 -] 1,000 unit PO DAILY 07/19/18 Cyanocobalamin [Vitamin B12 -] 1,000 mcg PO DAILY 07/19/18 Donepezil HCl [Aricept] 10 mg PO DAILY 07/19/18 Duloxetine HCl [Cymbalta -] 60 mg PO DAILY 07/19/18 Escitalopram Oxalate [Lexapro -] 30 mg PO DAILY 07/19/18 Insulin Glargine,Hum.rec.anlog [Lantus Solostar PEN (NF)] 15 units SQ TID Family Disease History - Family Disease History Family Disease History: CA: Father (Pancreatic CA), Mother (Brain CA), Sister ( Lung CA) Physical Exam-Neuro Vital Signs: Vital Signs Temperature 98.1 F 08/11/18 10:00 Pulse Rate 61 08/11/18 10:00 Respiratory Rate 18 08/11/18 10:00 Blood Pressure 139/74 08/11/18 10:00 O2 Sat by Pulse Oximetry (%) 98 08/11/18 06:38 Labs: CBC, BMP 08/10/18 17:15 08/10/18 17:15 INR, PTT INR 1.01 (0.83-1.09) 08/10/18 17:15 - Neuro Exam Motor Strength: 5/5: Left Arm, Right Arm, Left Leg, Right Leg Assessment/Plan Sudden onset severe KELLER/aphasia/akinesis lasting 5 mns. 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 Suggest: Card. w/u/carotid study-in progress(will add transcranial doppler) Depending on MRI appearance may need to d/c ASA and place on Plavix 75mg daily. Thank you, Trey Montenegro MD
[2018-08-11] MEDS: FLUTICASONE PROP 0.05% 16 GM NASAL SPRAY NS SCH ×2 (15:07→21:41)
[2018-08-11] MEDS: MELATONIN 5 MG TABLETS PO SCH (21:40)
[2018-08-11] MEDS: ATORVASTATIN CA 20 MG TABLET (FP) PO SCH (21:40)
[2018-08-11] MEDS: DOCUSATE SODIUM 100 MG CAPSULE (FP) PO SCH (21:53)
[2018-08-12] MEDS: metFORMIN HCL 500 MG TABLET (FP) PO SCH ×2 (06:26→17:43)
[2018-08-12] MEDS: INSULIN SLIDING SCALE (NOVOLOG) 1 VIAL SQ SCH ×4 (06:26→21:17)
[2018-08-12] MEDS: amLODIPine BESYLATE 10 MG TABLET (FP) PO SCH (09:26)
[2018-08-12] MEDS: ASPIRIN 81 MG CHEWABLE TABLETS PO SCH (09:26)
[2018-08-12] MEDS: LORATADINE 10 MG TABLET PO SCH (09:26)
[2018-08-12] MEDS: ESCITALOPRAM OXALATE 10 MG TABLET (FP) PO SCH (09:27)
[2018-08-12] MEDS: FLUTICASONE PROP 0.05% 16 GM NASAL SPRAY NS SCH ×2 (09:28→21:18)
[2018-08-12] MEDS ORDERED: QUINAPRIL HCL 5 MG TABLET (FP) PO SCH (10:00)
[2018-08-12] MEDS: ACETAMINOPHEN 325 MG TABLET (FP) PO PRN (17:43)
[2018-08-12] MEDS ORDERED: PT OWN MED DRAWER 7, Y5N ONE ×2 (19:09→21:14)
--- NOTE | 2018-08-12 20:00 | PN ---
Progress Note, Physician History of Present Illness: 73 yo male with PMH of poorly controlled and labile HTN,also diabetic with the most recent HbA1 C 6.7 and today 6.9 presented to ER yesterday afternoon with severe vertex headache which woke him up from his afternoon nap. His headache was severe and associated with inability to find words or move the entire body. He recovered within approxim 5 minutes. EMS was activated and found a BP of 150? / systolic, with normal glycemic levels. The patient has been compalinig of dizziness and headahes for the past week but this was also associated with symptoms of nasal congestion. CT scan performed yesterday was negtive for acute events. The patient is taking Aspirin 81 mg daily. In general th patient noticed that his memory is very poor and declining quickly. He has h/-o prostate Ca and is s/p total prostatectomy with the last PSA in April 2018 of less than 0.1 FU : no more KELLER dizziness improved MRI's reviewed MRI Impression: Ischemic changes white matter of both cerebral hemisphere sequela most probably to long-standing hypertension or small vessel atherosclerotic No evidence of acute infarct. No evidence acute intracerebral hemorrhage , subdural fluid collection or hydrocephalus. Cerebellopontine angles unremarkable. MRA Impression: Minimal atheroma changes basilar artery with no evidence of severe stenosis, dissection or occlusion. No evidence of aneurysm of [place] or middle cerebral arteries. No evidence of intracranial arteriovenous malformation. - Current Medication List Current Medications: Active Medications Acetaminophen (Tylenol -) 650 mg PO Q6H PRN PRN Reason: PAIN LEVEL 6-10 Last Admin: 08/12/18 17:43 Dose: 650 mg Amlodipine Besylate (Norvasc -) 10 mg PO DAILY [facility] Last Admin: 08/12/18 09:26 Dose: 10 mg Aspirin (Asa -) 81 mg PO DAILY [facility] Last Admin: 08/12/18 09:26 Dose: 81 mg Atorvastatin Calcium (Lipitor -) 20 mg PO HS [facility] Last Admin: 08/11/18 21:40 Dose: 20 mg Docusate Sodium (Colace -) 200 mg PO HS [facility] Last Admin: 08/11/18 21:53 Dose: 200 mg Escitalopram Oxalate (Lexapro -) 10 mg PO DAILY [facility] Last Admin: 08/12/18 09:27 Dose: 10 mg Fluticasone Propionate (Flonase -) 1 spray NS BID [facility] Last Admin: 08/12/18 09:28 Dose: 1 spray Insulin Aspart (Novolog Vial Sliding Scale -) 1 vial SQ ACHS [facility]; Protocol Last Admin: 08/12/18 17:40 Dose: Not Given Loratadine (Claritin -) 10 mg PO DAILY [facility] Last Admin: 08/12/18 09:26 Dose: 10 mg Melatonin (Melatonin) 10 mg PO HS [facility] Last Admin: 08/11/18 21:40 Dose: 10 mg Metformin HCl (Glucophage -) 500 mg PO BID@0700,1630 [facility] Last Admin: 08/12/18 17:43 Dose: 500 mg Quinapril HCl (Accupril -) 5 mg PO DAILY [facility] Last Admin: 08/12/18 09:28 Dose: 5 mg - Objective Vital Signs: Vital Signs Temperature 98.8 F 08/12/18 17:00 Pulse Rate 54 L 08/12/18 17:00 Respiratory Rate 18 08/12/18 17:00 Blood Pressure 137/72 08/12/18 17:00 O2 Sat by Pulse Oximetry (%) 97 08/12/18 14:00 Neurological: Yes: WNL Labs: CBC, BMP 08/10/18 17:15 08/10/18 17:15 INR, PTT INR 1.01 (0.83-1.09) 08/10/18 17:15 - ....Imaging MRI: Report Reviewed, Image Reviewed Problem List - Problems (1) Headache Code(s): R51 - HEADACHE Qualifiers: Headache type: unspecified Headache chronicity pattern: chronic headache Intractability: not intractable Qualified Code(s): R51 - Headache (2) TIA (transient ischemic attack) Code(s): G45.9 - TRANSIENT CEREBRAL ISCHEMIC ATTACK, UNSPECIFIED Assessment/Plan 73 yo male with PMH of poorly controlled and labile HTN,also diabetic with transient KELLER and dizziness-- somewhat atypical for TIA given symptomatology happens in the context of a dream MRI (-) for stroke Doppler (-) exam nonfocal and back to baseline ? parasomnia--can consider outpt sleep study maintain ASA, statin and BP RX as per card neurology sign off and can FU as outpt DR PIMENTEL [phone]
--- NOTE | 2018-08-12 20:35 | PN ---
Progress Note, Physician Chief Complaint: Events noted Intermittent headache History of Present Illness: Patient was seen and examined. Awake and alert. Chart was reviewed Denies chest pain, SOB or palpitations - Current Medication List Current Medications: Active Medications Acetaminophen (Tylenol -) 650 mg PO Q6H PRN PRN Reason: PAIN LEVEL 6-10 Last Admin: 08/12/18 17:43 Dose: 650 mg Amlodipine Besylate (Norvasc -) 10 mg PO DAILY [facility] Last Admin: 08/12/18 09:26 Dose: 10 mg Aspirin (Asa -) 81 mg PO DAILY [facility] Last Admin: 08/12/18 09:26 Dose: 81 mg Atorvastatin Calcium (Lipitor -) 20 mg PO HS [facility] Last Admin: 08/11/18 21:40 Dose: 20 mg Docusate Sodium (Colace -) [address] [facility] Last Admin: 08/11/18 21:53 Dose: 200 mg Escitalopram Oxalate (Lexapro -) 10 mg PO DAILY [facility] Last Admin: 08/12/18 09:27 Dose: 10 mg Fluticasone Propionate (Flonase -) 1 spray NS BID [facility] Last Admin: 08/12/18 09:28 Dose: 1 spray Insulin Aspart (Novolog Vial Sliding Scale -) [address] [facility]; Protocol Last Admin: 08/12/18 17:40 Dose: Not Given Loratadine (Claritin -) 10 mg PO DAILY [facility] Last Admin: 08/12/18 09:26 Dose: 10 mg Melatonin (Melatonin) [address] [facility] Last Admin: 08/11/18 21:40 Dose: 10 mg Metformin HCl (Glucophage -) 500 mg PO BID@0700,1630 [facility] Last Admin: 08/12/18 17:43 Dose: 500 mg Quinapril HCl (Accupril -) 5 mg PO DAILY [facility] Last Admin: 08/12/18 09:28 Dose: 5 mg - Objective Vital Signs: Vital Signs Temperature 98.8 F 08/12/18 17:00 Pulse Rate 54 L 08/12/18 17:00 Respiratory Rate 18 08/12/18 17:00 Blood Pressure 137/72 08/12/18 17:00 O2 Sat by Pulse Oximetry (%) 97 08/12/18 14:00 HENT: Yes: Atraumatic Neck: Yes: Supple Cardiovascular: Yes: Regular Rate and Rhythm, S1, S2 Respiratory: Yes: CTA Bilaterally Gastrointestinal: Yes: Normal Bowel Sounds, Soft. No: Tenderness Edema: No Additional Findings/Remarks: - Review of Systems Constitutional: denies: Chills, Fever Cardiovascular: reports: Palpitations. denies: Chest Pain, Shortness of Breath Respiratory: denies: Cough, Hemoptysis, Orthopnea, PND, SOB, SOB on Exertion Genitourinary: denies: Dysuria, Hematuria Musculoskeletal: denies: Back Pain, Joint Pain Neurological: reports: Change in Speech, Dizziness, Headache. denies: Seizure, Syncope, Tremors, Unsteady Gait Problem List - Problems (1) Diabetes Code(s): E11.9 - TYPE 2 DIABETES MELLITUS WITHOUT COMPLICATIONS (2) HTN (hypertension) Code(s): I10 - ESSENTIAL (PRIMARY) HYPERTENSION (3) Hypertriglyceridemia Code(s): E78.1 - PURE HYPERGLYCERIDEMIA (4) Prostate cancer Code(s): C61 - MALIGNANT NEOPLASM OF PROSTATE (5) TIA (transient ischemic attack) Code(s): G45.9 - TRANSIENT CEREBRAL ISCHEMIC ATTACK, UNSPECIFIED Assessment/Plan 1. Dizziness and headache with possible near syncope vs. TIA 2. HTN 3. Sinus bradycardia with periods of Mobitz 1 [place] 4. Hypercholesterolemia 5. DM 6. History of prostate CA PLAN: 1. Hold Atenolol and monitor on telemetry - currently no evidence of [place] 2. Continue Amlodipine and Quinapril as tolerated 3. Continue ASA 4. Continue Atorvastatin 5. Echocardiography to assess LV/RV and valvular function 6. Carotid Doppler showed mild carotid artery plaque 7. Brain MRI/MRA noted Further plans are to follow Marc Paul MD
--- NOTE | 2018-08-12 20:39 | PN ---
Progress Note, Physician Chief Complaint: Patient with no new complaints since yesterday.Blood pressure is approximately 150 mm Hg History of Present Illness: 73 yo male who came in with complaints of severe headache and brief confusion episode associated with aphasia and gneralized weakness and inability to move. Symptoms lasted a few minutes - Current Medication List Current Medications: Active Medications Acetaminophen (Tylenol -) 650 mg PO Q6H PRN PRN Reason: PAIN LEVEL 6-10 Last Admin: 08/12/18 17:43 Dose: 650 mg Amlodipine Besylate (Norvasc -) 10 mg PO DAILY [facility] Last Admin: 08/12/18 09:26 Dose: 10 mg Aspirin (Asa -) 81 mg PO DAILY [facility] Last Admin: 08/12/18 09:26 Dose: 81 mg Atorvastatin Calcium (Lipitor -) 20 mg PO HS [facility] Last Admin: 08/11/18 21:40 Dose: 20 mg Docusate Sodium (Colace -) 200 mg PO HS [facility] Last Admin: 08/11/18 21:53 Dose: 200 mg Escitalopram Oxalate (Lexapro -) 10 mg PO DAILY [facility] Last Admin: 08/12/18 09:27 Dose: 10 mg Fluticasone Propionate (Flonase -) 1 spray NS BID [facility] Last Admin: 08/12/18 09:28 Dose: 1 spray Insulin Aspart (Novolog Vial Sliding Scale -) 1 vial SQ ACHS [facility]; Protocol Last Admin: 08/12/18 17:40 Dose: Not Given Loratadine (Claritin -) 10 mg PO DAILY [facility] Last Admin: 08/12/18 09:26 Dose: 10 mg Melatonin (Melatonin) 10 mg PO [facility] Last Admin: 08/11/18 21:40 Dose: 10 mg Metformin HCl (Glucophage -) 500 mg PO BID@0700,1630 [facility] Last Admin: 08/12/18 17:43 Dose: 500 mg Quinapril HCl (Accupril -) 5 mg PO DAILY [facility] Last Admin: 08/12/18 09:28 Dose: 5 mg - Objective Vital Signs: Vital Signs Temperature 98.8 F 08/12/18 17:00 Pulse Rate 54 L 08/12/18 17:00 Respiratory Rate 18 08/12/18 17:00 Blood Pressure 137/72 08/12/18 17:00 O2 Sat by Pulse Oximetry (%) 97 08/12/18 14:00 Constitutional: Yes: No Distress, Calm Eyes: Yes: Conjunctiva Clear, EOM Intact HENT: Yes: Atraumatic, Normocephalic Neck: Yes: Supple, Trachea Midline Cardiovascular: Yes: Regular Rate and Rhythm, S1, S2 Respiratory: Yes: Regular, CTA Bilaterally, On Nasal O2 Gastrointestinal: Yes: Normal Bowel Sounds, Soft, Abdomen, Obese. No: Hepatomegaly, Splenomegaly Genitourinary: Yes: WNL Musculoskeletal: Yes: WNL Edema: No Peripheral Pulses WNL: Yes Neurological: Yes: Alert, Oriented Psychiatric: Yes: Alert, Oriented Labs: CBC, BMP 08/10/18 17:15 08/10/18 17:15 INR, PTT INR 1.01 (0.83-1.09) 08/10/18 17:15 Problem List - Problems (1) TIA (transient ischemic attack) Assessment/Plan: MRI and MRA of the brain showed old strokes and no acute intracranial events aspirin 81 mg daily control BP carotid Doppler showing no significant obstruction on the carotids EcHO negative Code(s): G45.9 - TRANSIENT CEREBRAL ISCHEMIC ATTACK, UNSPECIFIED (2) HTN (hypertension) Assessment/Plan: D/c Atenolol due to Mobitz II start QUINCY inhibitor Accupril increase Accupril dose to 10 mg daily Code(s): I10 - ESSENTIAL (PRIMARY) HYPERTENSION (3) Hypertriglyceridemia Assessment/Plan: Lipitor in hospital Code(s): E78.1 - PURE HYPERGLYCERIDEMIA (4) Headache Assessment/Plan: related to sinus congestion? Code(s): R51 - HEADACHE Qualifiers: Headache type: unspecified Headache chronicity pattern: chronic headache Intractability: not intractable Qualified Code(s): R51 - Headache (5) Bradyarrhythmia Assessment/Plan: discontinued Atenolol and on Holter as per Cardiology Code(s): I49.8 - OTHER SPECIFIED CARDIAC ARRHYTHMIAS (6) Diabetes Assessment/Plan: lantus on hold and BGM's AC HS to monitor for hypoglicemia and reassess the total amount of insulin required in 24 hours continue Glucophage Code(s): E11.9 - TYPE 2 DIABETES MELLITUS WITHOUT COMPLICATIONS Qualifiers: Diabetes mellitus type: type 2 Diabetes mellitus complication status: with neurologic complications Diabetes mellitus complication detail: with polyneuropathy (7) Allergic rhinitis Assessment/Plan: start nasonex nasal spray at hs and claritin daily Code(s): J30.9 - ALLERGIC RHINITIS, UNSPECIFIED (8) Constipation Assessment/Plan: colace 200 mg at HS Code(s): K59.00 - CONSTIPATION, UNSPECIFIED (9) Bipolar disorder Assessment/Plan: Escitalopram Code(s): F31.9 - BIPOLAR DISORDER, UNSPECIFIED (10) Prostate cancer Assessment/Plan: PSA in April 2018 less then 0.1 Code(s): C61 - MALIGNANT NEOPLASM OF PROSTATE
[2018-08-12] MEDS: MELATONIN 5 MG TABLETS PO SCH (21:17)
[2018-08-12] MEDS: ATORVASTATIN CA 20 MG TABLET (FP) PO SCH (21:17)
[2018-08-12] MEDS: DOCUSATE SODIUM 100 MG CAPSULE (FP) PO SCH (21:18)
--- NOTE | 2018-08-12 21:37 | HOL ---
Hook-up date: 2018-08-11 13:47:00 Duration: 23:16:00 Test Indications: MOBITZ 1 SECONDARY AV BLOCK Medications: 35930 QRS complexes 148 Ventricular ectopics which represent <1 % of total QRS comp. * Supraventricular ectopics which represent % of total QRS comp. * Paced QRS complexs which represent % of total QRS comp. * % of Time Classified as Noise VENTRICULAR ECTOPY 148 Isolated 0 Bigeminal Cycles 0 Couplets 0 Runs 0 Beats in Runs * Beats LONGEST at * BPM at :: -- * Beats FASTEST at * BPM at :: -- SUPRAVENTRICULAR ECTOPY * Isolated * Couplets * Runs * Beats in Runs * Beats LONGEST at * BPM at :: -- * Beats FASTEST at * BPM at :: -- HEART RATES 35 MIN at 06:12:08 2018-08-12 58 AVG 83 MAX at 10:47:54 2018-08-12 LONGEST RR 2.376 secs at 05:15:07 2018-08-12 SCANNED BY VALERIY BARRETT ON 08/12/18 1. BASELINE RHYTHM APPEARS SINUS WITH AVERAGE HR OF 58 BPM. RATES VARIED FROM 35 TO 83 BPM. 2. OCCASIONAL PVCS 3. NO ATRIAL ECTOPIES 4, DIARY WAS NOT SUBMITTED Confirmed by ALBER BARTH, CONRADO ([id number]) on 08/12/2018 9:36:52 PM Referred By: CARI CRESPO DRESCU Overread By: CONRADO CAMPO MD
[2018-08-13] MEDS: ACETAMINOPHEN 325 MG TABLET (FP) PO PRN (00:12)
[2018-08-13] MEDS: INSULIN SLIDING SCALE (NOVOLOG) 1 VIAL SQ SCH (06:15)
[2018-08-13] MEDS: metFORMIN HCL 500 MG TABLET (FP) PO SCH (06:15)
--- NOTE | 2018-08-13 07:56 | PN ---
Progress Note (short form) - Note Progress Note: Chief Complaint: Events noted, notes reviewed, denies any chest pain or dyspnea , sinus rhythm is noted History of Present Illness: Seen and examined on telemetry. Events noted, notes reviewed, denies any chest pain or dyspnea, sinus rhythm is noted Medications: Current Medications Acetaminophen (Tylenol -) 650 mg PO Q6H PRN PRN Reason: PAIN LEVEL 6-10 Last Admin: 08/13/18 00:12 Dose: 650 mg Amlodipine Besylate (Norvasc -) 10 mg PO DAILY [facility] Last Admin: 08/12/18 09:26 Dose: 10 mg Aspirin (Asa -) 81 mg PO DAILY [facility] Last Admin: 08/12/18 09:26 Dose: 81 mg Atorvastatin Calcium (Lipitor -) 20 mg PO [facility] Last Admin: 08/12/18 21:17 Dose: 20 mg Docusate Sodium (Colace -) 200 mg PO [facility] Last Admin: 08/12/18 21:18 Dose: 200 mg Escitalopram Oxalate (Lexapro -) 10 mg PO DAILY [facility] Last Admin: 08/12/18 09:27 Dose: 10 mg Fluticasone Propionate (Flonase -) 1 spray NS BID [facility] Last Admin: 08/12/18 21:18 Dose: 1 spray Insulin Aspart (Novolog Vial Sliding Scale -) 1 vial SQ [facility]; Protocol Last Admin: 08/13/18 06:15 Dose: 2 units Loratadine (Claritin -) 10 mg PO DAILY [facility] Last Admin: 08/12/18 09:26 Dose: 10 mg Melatonin (Melatonin) 10 mg PO [facility] Last Admin: 08/12/18 21:17 Dose: 10 mg Metformin HCl (Glucophage -) 500 mg PO BID@0700,1630 [facility] Last Admin: 08/13/18 06:15 Dose: 500 mg Quinapril HCl (Accupril -) 5 mg PO DAILY [facility] Last Admin: 08/12/18 09:28 Dose: 5 mg Review of Systems - Review of Systems Constitutional: no symptoms reported Respiratory: denies Cough Cardiovascular: as noted above Gastrointestinal: denies Nausea, Vomiting, Diarrhea, Constipation or Abdominal Pain Genitourinary: no symptoms reported Musculoskeletal: no symptoms reported Endocrine: no symptoms reported Vital Signs: Last Vital Signs Temp Pulse Resp BP Pulse Ox 98.1 F 57 L 18 135/71 98 08/13/18 05:00 08/13/18 05:00 08/13/18 05:00 08/13/18 05:00 08/13/18 06:00 Intake & Output 08/10/18 08/11/18 08/12/18 08/13/18 23:59 23:59 23:59 23:59 Intake Total 350 790 130 Balance 350 790 130 Weight 180 lb Neck: Supple Negative JVD Respiratory: Clear to A&P Bilaterally Cardiovascular: S1 S2 Regular Rate and Rhythm Gastrointestinal: Soft Benign Normal Bowel Sounds Ext: Negative Edema Labs: CBC, BMP 08/10/18 17:15 08/10/18 17:15 Hepatic Panel Total Bilirubin 0.3 mg/dL (0.2-1) 08/10/18 17:15 AST 35 U/L (15-37) 08/10/18 17:15 ALT 35 U/L (13-61) 08/10/18 17:15 Alkaline Phosphatase 71 U/L (45-117) 08/10/18 17:15 Albumin 3.9 g/dl (3.4-5.0) 08/10/18 17:15 Assessment/Plan ASSESSMENT: 1. Dizziness and headache with possible near syncope vs. TIA 2. Probable diastolic LV dysfunction with class 0 NYHA classification LV failure 3. Sinus bradycardia with periods of Mobitz 1 AV block ([place]) 4. HTN 5. DM 6. Hypercholesterolemia 7. Carotid atherosclerosis 8. History of prostate carcinoma PLAN: 1. Continue to hold Atenolol in view of persistent baseline sinus bradycardia 2. Continue Amlodipine 3. Continue Quinapril 4. Continue ASA 5. Continue Atorvastatin 6. Obtain echocardiography report, study completed, provided LV function is normal can be D/C from the cardiovascular point of view and additional evaluation can be performed as outpatient Feliz Sanabria M.D.
[2018-08-13 08:16] VITALS: BP 132/66; TEMP 98.4
[2018-08-13 08:18] VITALS: PULSE 57
[2018-08-13] MEDS ORDERED: PT OWN MED DRAWER 7, Y5N ONE (09:27)
[2018-08-13] MEDS ORDERED: QUINAPRIL HCL 10 MG TABLET (FP) PO SCH (09:48)
[2018-08-13] MEDS: ESCITALOPRAM OXALATE 10 MG TABLET (FP) PO SCH (09:59)
[2018-08-13] MEDS: LORATADINE 10 MG TABLET PO SCH (10:00)
[2018-08-13] MEDS: amLODIPine BESYLATE 10 MG TABLET (FP) PO SCH (10:00)
[2018-08-13] MEDS: FLUTICASONE PROP 0.05% 16 GM NASAL SPRAY NS SCH (10:00)
[2018-08-13] MEDS: ASPIRIN 81 MG CHEWABLE TABLETS PO SCH ×2 (10:00→10:02)
--- NOTE | 2018-08-13 11:19 | ECHO ---
Name: PACO SETHI Exam:Adult Echocardiogram Study Date: 08/12/2018 01:56 PM Age: 73 yrs Reason For Study: Chest pain Height: 66 in Weight: 180 lb BSA: 1.9 m2 MMode/2D Measurements & Calculations IVSd: 1.1 cm EDV(Teich): 53.3 ml LVIDd: 3.6 cm ESV(Teich): 23.0 ml LVIDs: 2.5 cm LVPWd: 1.8 cm LVOT diam: 2.5 cm Doppler Measurements & Calculations Med Peak E' Bi: 8.0 cm/sec Lat Peak E' Bi: 8.0 cm/sec Procedure A two-dimensional transthoracic echocardiogram with color flow and Doppler was performed. The study w as technically difficult with many images being suboptimal in quality. The patient was in normal sinus r hythm during the exam. Left Ventricle Left ventricular systolic function is grossly normal. Ejection Fraction = 55%. Right Ventricle The right ventricle is not well visualized. The right ventricle is grossly normal size. The right jaimee tricular systolic function is grossly normal. Atria The left atrium is not well visualized. The left atrial size is normal. Mitral Valve The mitral valve is not well visualized. The mitral valve is grossly normal. There is no mitral regur gitation noted. Tricuspid Valve The tricuspid valve is not well visualized. The tricuspid valve is not well visualized, but is grossl y normal. No tricuspid regurgitation. Aortic Valve The aortic valve is not well visualized. The aortic valve opens well. No aortic regurgitation is pres ent. Pulmonic Valve The pulmonic valve is not well visualized. Great Vessels The aortic root is not well visualized but is probably normal size. Pericardium/Pleura There is no pericardial effusion. Interpretation Summary The study was technically difficult with many images being suboptimal in quality. Left ventricular systolic function is grossly normal. The right ventricular systolic function is grossly normal. There is no pericardial effusion. MD Huang Jordan 08/13/2018 11:18 AM
--- NOTE | 2018-08-13 20:23 | PN ---
Progress Note, Physician Chief Complaint: The patient is doing well, and has b= no new complaints. His BS is below 200 History of Present Illness: 73 yo male who came in with complaints of severe headache and brief confusion episode associated with aphasia and generalized weakness and inability to move. Symptoms lasted a few minutes. An MRI and MRA were perfprmed and they did not show any acute intracranial pathology.He continues to have intermittent headcahe - Objective Vital Signs: Vital Signs Temperature 98.4 F 08/13/18 08:15 Pulse Rate 57 L 08/13/18 08:15 Respiratory Rate 20 08/13/18 08:18 Blood Pressure 132/66 08/13/18 08:15 O2 Sat by Pulse Oximetry (%) 97 08/13/18 08:18 Constitutional: Yes: No Distress, Calm Eyes: Yes: Conjunctiva Clear, EOM Intact HENT: Yes: Atraumatic, Normocephalic Neck: Yes: Supple, Trachea Midline Cardiovascular: Yes: Regular Rate and Rhythm, S1, S2 Respiratory: Yes: Regular, CTA Bilaterally Gastrointestinal: Yes: Normal Bowel Sounds, Soft, Abdomen, Obese. No: Hepatomegaly, Splenomegaly ...Rectal Exam: Yes: Deferred Breast(s): Yes: WNL Musculoskeletal: Yes: WNL Edema: No Peripheral Pulses WNL: Yes Neurological: Yes: Alert, Oriented Psychiatric: Yes: Alert, Oriented Labs: CBC, BMP 08/10/18 17:15 08/10/18 17:15 INR, PTT INR 1.01 (0.83-1.09) 08/10/18 17:15 Problem List - Problems (1) TIA (transient ischemic attack) Assessment/Plan: MRI and MRA were negative aspirin 81 mg daily control BP Code(s): G45.9 - TRANSIENT CEREBRAL ISCHEMIC ATTACK, UNSPECIFIED (2) HTN (hypertension) Assessment/Plan: increase QUINCY inhibitor Accupril to 10 mg daily Code(s): I10 - ESSENTIAL (PRIMARY) HYPERTENSION (3) Hypertriglyceridemia Assessment/Plan: Lipitor in hospital Code(s): E78.1 - PURE HYPERGLYCERIDEMIA (4) Headache Assessment/Plan: related to sinus congestion? Code(s): R51 - HEADACHE Qualifiers: Headache type: unspecified Headache chronicity pattern: chronic headache Intractability: not intractable Qualified Code(s): R51 - Headache (5) Bradyarrhythmia Assessment/Plan: improved while off Atenolol, and the Mobitz did not recur Holter as per Cardiology was nefative Code(s): I49.8 - OTHER SPECIFIED CARDIAC ARRHYTHMIAS (6) Diabetes Assessment/Plan: lantus on hold and BGM's AC HS to monitor for hypoglicemia and reassess the total amount of insulin required in 24 hours continue Glucophage Code(s): E11.9 - TYPE 2 DIABETES MELLITUS WITHOUT COMPLICATIONS Qualifiers: Diabetes mellitus type: type 2 Diabetes mellitus complication status: with neurologic complications Diabetes mellitus complication detail: with polyneuropathy (7) Allergic rhinitis Assessment/Plan: start nasonex nasal spray at hs and claritin daily Code(s): J30.9 - ALLERGIC RHINITIS, UNSPECIFIED (8) Constipation Code(s): K59.00 - CONSTIPATION, UNSPECIFIED (9) Bipolar disorder Assessment/Plan: Escitalopram Code(s): F31.9 - BIPOLAR DISORDER, UNSPECIFIED (10) Prostate cancer Assessment/Plan: PSA in April 2018 less then 0.1 Code(s): C61 - MALIGNANT NEOPLASM OF PROSTATE Assessment/Plan 73 yo male admitted for severe headache. altered mental status and inability to move was investigated for acute CVA and had a negative work up for acute events He will be discharged home and follow up as an outpatient with me, Cardiology and Neurology
--- NOTE | 2018-08-13 20:29 | DS ---
Physical Examination Vital Signs: Vital Signs Temperature 98.4 F 08/13/18 08:15 Pulse Rate 57 L 08/13/18 08:15 Respiratory Rate 20 08/13/18 08:18 Blood Pressure 132/66 08/13/18 08:15 O2 Sat by Pulse Oximetry (%) 97 08/13/18 08:18 Constitutional: Yes: No Distress, Calm Eyes: Yes: Conjunctiva Clear, EOM Intact HENT: Yes: Atraumatic, Normocephalic Neck: Yes: Supple, Trachea Midline Cardiovascular: Yes: S1, S2 Respiratory: Yes: Regular, CTA Bilaterally Gastrointestinal: Yes: Normal Bowel Sounds, Soft, Abdomen, Obese. No: Palpable Mass, Splenomegaly, Tenderness Edema: No Peripheral Pulses WNL: Yes Neurological: Yes: Alert, Oriented Psychiatric: Yes: Alert, Oriented Labs: CBC, BMP 08/10/18 17:15 08/10/18 17:15 Discharge Summary Reason For Visit: HEADACHE/AMS Procedures: Principal: mri, mranof nehal, telemetry monitoring, ECHO Condition: Stable - Instructions Referrals: Yenifer oBwers MD [Primary Care Provider] - Disposition: HOME - Home Medications Comprehensive Discharge Medication List: Ambulatory Orders Insulin Regular, Human [Humulin R -] 15 units SQ TID 04/23/14 Simvastatin [Zocor -] 40 mg PO HS 04/23/14 metFORMIN HCL [Glucophage -] 500 mg PO BID 04/23/14 Aspirin 81 mg PO DAILY 07/19/18 Cholecalciferol (Vitamin D3) [Vitamin D3 -] 1,000 unit PO DAILY 07/19/18 Cyanocobalamin [Vitamin B12 -] 1,000 mcg PO DAILY 07/19/18 Donepezil HCl [Aricept] 10 mg PO DAILY 07/19/18 Escitalopram Oxalate [Lexapro -] 30 mg PO DAILY 07/19/18 Insulin Glargine,Hum.rec.anlog [Lantus Solostar PEN -] 15 units SQ TID 07/19/18 Acetaminophen [Tylenol .Regular Strength -] 650 mg PO Q6H PRN tablet 08/13/18 Amlodipine Besylate [Norvasc -] 10 mg PO DAILY tablet 08/13/18 Aspirin [ASA -] 81 mg PO DAILY tab.chew 08/13/18 Docusate Sodium [Colace -] 200 mg PO HS capsule 08/13/18 Escitalopram Oxalate [Lexapro -] 10 mg PO DAILY tablet 08/13/18 Fluticasone Prop 0.05% Nasal [Flonase -] 1 spray NS BID spray 08/13/18 Loratadine [Claritin -] 10 mg PO DAILY tablet 08/13/18 Melatonin 10 mg PO HS tab 08/13/18 Quinapril HCl [Accupril -] 10 mg PO DAILY 30 Days #30 tablet 08/13/18 metFORMIN HCL [Glucophage -] 500 mg PO BID@0700,1630 tablet 08/13/18
== END 2018-08-13 11:02 | disposition home or self-care (01) | DRG 69 ==
LOC: JER 16:46 → JERBED 21:11 → J4W 08-11 00:07 → OBSVTOIN 08-12 15:25
PROVIDERS: ADMIT Internal Medicine; ATTEND Internal Medicine
DX: G45.9 Transient cerebral ischemic attack, unspecified (principal); I50.30 Unspecified diastolic (congestive) heart failure; E78.5 Hyperlipidemia, unspecified; R41.82 Altered mental status, unspecified; I11.0 Hypertensive heart disease with heart failure; R51 Headache; N40.0 Benign prostatic hyperplasia without lower urinary tract symptoms; I44.1 Atrioventricular block, second degree; J30.9 Allergic rhinitis, unspecified; E11.42 Type 2 diabetes mellitus with diabetic polyneuropathy; K59.00 Constipation, unspecified; E66.9 Obesity, unspecified; Z68.29 Body mass index [BMI] 29.0-29.9, adult; E78.1 Pure hyperglyceridemia; F31.9 Bipolar disorder, unspecified; R74.8 Abnormal levels of other serum enzymes; R00.1 Bradycardia, unspecified; I49.8 Other specified cardiac arrhythmias; Z85.46 Personal history of malignant neoplasm of prostate
CPT/HCPCS: 36415; 70450-TC; 70544-TC; 70551-TC; 71046-TC-FY; 80053; 80061; 81003; 82550; 82553; 82962; 83036; 83721; 83735; 84443; 84484; 85025; 85610; 87086; 93005; 93010; 93225; 93226; 93306-TC; 93880-TC; 99285-25; G0378; J7030

== ENCOUNTER 2019-02-04 02:08 | Emergency (ER) | payer OTHER ==
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
[2019-02-04 03:11] VITALS: BMI 27.6
--- NOTE | 2019-02-04 03:12 | PDOC ---
Attending Attestation - Resident Resident Name: Luz Maria Orona - ED Attending Attestation I have performed the following: I have examined & evaluated the patient, The case was reviewed & discussed with the resident, I agree w/resident's findings & plan, Exceptions are as noted - HPI HPI: 02/04/19 03:10 73y M hx of htn, dm, depression, prosate ca s/p resection presents with complaint of having nightmares. Pt endorses feeling some sob, palpitations, anxiety when he woke up but denies any complaints now. Notes he had simlar sypmtoms once before that he was worked up for. denies any current cp, sob, abd pain, n/v, headache, dizziness, fever/chills, diarrhea, dysuria. PMD: [facility] GENERAL: The patient is awake, alert, and fully oriented, Nontoxic - in no acute distress. HEAD: Normocephalic, atraumatic. EYES: extraocular movements intact, sclera anicteric, conjunctiva clear. ENT: Normal voice, Moist mucous membranes. NECK: Normal range of motion, supple LUNGS: Breath sounds equal, clear to auscultation bilaterally. No wheezes, no rhonchi, no rales. HEART: Regular rate and rhythm, normal S1 and S2 without murmur, rub or gallop. ABDOMEN: Soft, nontender, normoactive bowel sounds. No guarding, no rebound. . No CVA tenderness EXTREMITIES: Normal range of motion, no edema. No clubbing or cyanosis. No cords, erythema, or tenderness. NEUROLOGICAL: No facial assymetry, Normal speech, moving all 4 extremities spontaneously and symmetrically PSYCH: Normal mood, normal affect. SKIN: Warm, Dry, normal turgor, Suspect the patient simply had a nightmare, due to his age and vague symptoms at onset we'll obtain blood work to rule out acute medical derangements, anemia , occult infection, EKG. If everything is normal and the patient is a symptomatic we'll discharge home with PMD follow-up. - Physicial Exam PE: 02/04/19 05:27 see above - Medical Decision Making 02/04/19 05:27 The patient's blood work was reviewed there was a mild leukocytosis however there were no other signs of infection including normal urine. he is feeling improved I will discharge patient with PMD follow-up return precautions were discussed Heart Score/ECG Review - ECG Impressions Comment:: 02/04/19 03:57 Twelve-lead EKG was performed and reviewed by me. There is normal sinus rhythm with a normal rate. Rate of 70 First degree AV block No ST changes suggestive of acute ischemia
[2019-02-04 03:58] LABS: BASO % 1.6 % (0-2.0); EOS % 2.6 % (0-4.5); HEMOGLOBIN 14.6 GM/dL (11.7-16.9); LYMPH % 33.8 % (8-40); MCH 30.8 pg (25.7-33.7); MCHC 34.7 g/dl (32.0-35.9); MEAN CELL VOLUME 88.6 fl (80-96); MONO % 6.5 % (3.8-10.2); NEUT % 55.5 % (42.8-82.8); RBC 4.74 M/mm3 (4.00-5.60); RDW 13.1 % (11.9-15.9); WHITE BLOOD COUNT 12.2 K/mm3 (4.0-10.0)
[2019-02-04 04:09] LABS: PH,URINE 7.5 (5.0-8.0); URINE APPEARANCE TURBID; URINE BILIRUBIN NEGATIVE (NEGATIVE); URINE COLOR YELLOW; URINE GLUCOSE (UA) NEGATIVE (NEGATIVE); URINE KETONE NEGATIVE (NEGATIVE); URINE LEUK ESTERASE NEGATIVE (NEGATIVE); URINE NITRITE NEGATIVE (NEGATIVE); URINE PROTEIN NEGATIVE (NEGATIVE); URINE UROBILINOGEN 0.2 mg/dL (0.2-1.0)
[2019-02-04 04:30] LABS: ALBUMIN 3.9 g/dl (3.4-5.0); ALK PHOS 102 U/L (45-117); ANION GAP 8 MMOL/L (8-16); BILIRUBIN,TOTAL 0.3 mg/dL (0.2-1); BLOOD UREA NITROGEN 11 mg/dL (7-18); CHLORIDE 105 mmol/L (98-107); CO2 28 mmol/L (21-32); CREATININE 0.7 mg/dL (0.55-1.3); GLUCOSE,RANDOM 97 mg/dL (74-106); POTASSIUM 4.6 mmol/L (3.5-5.1); SGOT/AST 41 U/L (15-37); SGPT/ALT 31 U/L (13-61); SODIUM 140 mmol/L (136-145); TOT PROT 7.6 g/dl (6.4-8.2)
[2019-02-04 05:13] LABS: MEAN PLT VOLUME 9.3 fl (7.5-11.1); PLATELET COUNT 270 K/MM3 (134-434)
[2019-02-04 05:31] VITALS: BP 136/89; PULSE 76; TEMP 97.8
--- NOTE | 2019-02-04 11:08 | EKG ---
Test Reason : Blood Pressure : / mmHG Vent. Rate : 070 BPM Atrial Rate : 070 BPM P-R Int : 216 ms QRS Dur : 092 ms QT Int : 416 ms P-R-T Axes : 072 056 055 degrees QTc Int : 449 ms SINUS RHYTHM WITH 1ST DEGREE A-V BLOCK OTHERWISE NORMAL ECG Confirmed by MD Ana, Terrance ([id number]) on 02/04/2019 11:08:50 AM Referred By: Confirmed By:Terrance Perez MD
== END 2019-02-04 05:45 | disposition home or self-care (01) ==
LOC: JER 02:08
DX: F51.5 Nightmare disorder (principal); G47.8 Other sleep disorders; I10 Essential (primary) hypertension; E78.00 Pure hypercholesterolemia, unspecified; E11.9 Type 2 diabetes mellitus without complications; Z79.4 Long term (current) use of insulin; Z85.46 Personal history of malignant neoplasm of prostate
CPT/HCPCS: 36415; 80053; 81003; 85025; 93005; 93010; 99281-25

== ENCOUNTER 2020-12-01 09:30 | Emergency (ER) | payer OTHER ==
[2020-12-01 09:34] VITALS: BP 146/78; PULSE 80; TEMP 98; BMI 30.9
== END 2020-12-01 10:06 | disposition home or self-care (01) ==
LOC: FER 09:30
PROC: 0HQGXZZ Repair Left Hand Skin, External Approach (ICD-10-PCS; principal; 2020-12-01)
DX: S61.012A Laceration without foreign body of left thumb without damage to nail, initial encounter (principal)
CPT/HCPCS: 12001-25; 99284-25

== ENCOUNTER 2020-12-17 10:33 | Emergency (ER) | payer OTHER ==
[2020-12-17 10:45] VITALS: BP 142/76; PULSE 78; TEMP 98; BMI 29.8
== END 2020-12-17 10:48 | disposition home or self-care (01) ==
LOC: FER 10:33
DX: Z48.02 Encounter for removal of sutures (principal)
CPT/HCPCS: 99281-25

== ENCOUNTER 2021-09-10 11:12 | Inpatient (IN) | payer OTHER ==
[2021-09-10 12:46] LABS: BASO % 0.6 % (0-2.0); EOS % 2.9 % (0-4.5); HEMATOCRIT 38.5 % (35.4-49); HEMOGLOBIN 13.2 GM/dL (11.7-16.9); LYMPH % 22.3 % (8-40); MCH 30.3 pg (25.7-33.7); MCHC 34.3 g/dl (32.0-35.9); MEAN CELL VOLUME 88.4 fl (80-96); MEAN PLT VOLUME 8.6 fl (7.5-11.1); MONO % 9.1 % (3.8-10.2); NEUT % 65.1 % (42.8-82.8); PLATELET COUNT 309 10^3/uL (134-434); RBC 4.35 M/mm3 (4.00-5.60); WHITE BLOOD COUNT 6.5 K/mm3 (4.0-10.0)
[2021-09-10 12:54] LABS: INR 1.1 (0.83-1.09); PROTHROMBIN TIME (PATIENT) 12.9 SEC (9.7-13.0)
[2021-09-10] MEDS ORDERED: LIDOCAINE 5% TOPICAL PATCH TP ONE (12:55)
[2021-09-10] MEDS ORDERED: ACETAMINOPHEN 1000 MG/100 ML BAG IVPB ONE (12:55)
[2021-09-10 12:56] LABS: ACTIVATED PTT 29.7 SECONDS (25.2-36.5)
[2021-09-10 13:04] LABS: CHLORIDE 108 mmol/L (98-107); SODIUM 139 mmol/L (136-145)
[2021-09-10 13:06] LABS: ALBUMIN 3.7 g/dl (3.4-5.0); ANION GAP 5 MMOL/L (8-16); CALCIUM 8.8 mg/dL (8.5-10.1); CO2 26 mmol/L (21-32); MAGNESIUM 2.4 mg/dL (1.8-2.4)
[2021-09-10 13:07] LABS: GLUCOSE,RANDOM 165 mg/dL (74-106)
[2021-09-10 13:09] LABS: SGOT/AST 20 U/L (15-37); SGPT/ALT 27 U/L (13-61)
[2021-09-10 13:10] LABS: CREATININE 0.9 mg/dL (0.55-1.3)
[2021-09-10 13:11] LABS: BILIRUBIN,TOTAL 0.4 mg/dL (0.2-1)
[2021-09-10 13:12] LABS: ALK PHOS 97 U/L (45-117)
[2021-09-10] MEDS ORDERED: LIDOCAINE 5% TOPICAL PATCH ONE (13:36)
[2021-09-10] MEDS ORDERED: ACETAMINOPHEN INJECTION 100 ML IVPB ONE (13:36)
[2021-09-10 17:56] VITALS: BMI 25.9
[2021-09-10] MEDS: ASPIRIN 81 MG CHEWABLE TABLETS PO SCH (18:40)
[2021-09-10] MEDS: RANOLAZINE E.R. 500 MG TABLET (FP) PO SCH (21:10)
[2021-09-10] MEDS: ATORVASTATIN CA 80 MG TABLET (FP) PO SCH (21:12)
[2021-09-10] MEDS: INSULIN SLIDING SCALE (NOVOLOG) 1 VIAL SQ SCH (21:16)
[2021-09-10] MEDS ORDERED: LIDOCAINE PATCH REMOVAL MC SCH (22:00)
[2021-09-11 01:34] LABS: PH,URINE 7.5 (5.0-8.0); URINE APPEARANCE CLOUDY; URINE BILIRUBIN NEGATIVE (NEGATIVE); URINE COLOR YELLOW; URINE GLUCOSE (UA) TRACE (NEGATIVE); URINE KETONE NEGATIVE (NEGATIVE); URINE LEUK ESTERASE NEGATIVE (NEGATIVE); URINE NITRITE NEGATIVE (NEGATIVE); URINE PROTEIN NEGATIVE (NEGATIVE); URINE UROBILINOGEN 0.2 mg/dL (0.2-1.0)
[2021-09-11] MEDS: metFORMIN HCL 500 MG TABLET (FP) PO SCH ×3 (06:02→17:30)
[2021-09-11] MEDS: INSULIN SLIDING SCALE (NOVOLOG) 1 VIAL SQ SCH ×4 (06:03→21:15)
[2021-09-11] MEDS ORDERED: PT OWN MED DRAWER 7, Y5N ONE (09:56)
[2021-09-11] MEDS: ESCITALOPRAM OXALATE 10 MG TABLET PO SCH (10:02)
[2021-09-11] MEDS: ASPIRIN 81 MG CHEWABLE TABLETS PO SCH (10:03)
[2021-09-11] MEDS: DONEPEZIL HCL 10 MG TABLET (FP) PO SCH (10:03)
[2021-09-11] MEDS: RANOLAZINE E.R. 500 MG TABLET (FP) PO SCH ×2 (10:03→21:09)
[2021-09-11] MEDS: QUINAPRIL HCL 20 MG TABLET PO SCH (10:03)
[2021-09-11] MEDS: amLODIPine BESYLATE 10 MG TABLET (FP) PO SCH (10:03)
[2021-09-11] MEDS ORDERED: MAGNESIUM HYDROX 2400MG/30ML ORAL SUSPENSION 30 ML CUP PO ONE (17:00)
[2021-09-11] MEDS: ATORVASTATIN CA 80 MG TABLET (FP) PO SCH (21:09)
[2021-09-11] MEDS ORDERED: diazePAM 5 MG TABLET PO SCH (22:00)
[2021-09-12] MEDS ORDERED: INSULIN (NOVOLOG) ASPART 100 UNITS/ML 10ML VIAL ONE (06:19)
[2021-09-12] MEDS: INSULIN SLIDING SCALE (NOVOLOG) 1 VIAL SQ SCH ×2 (06:40→12:40)
[2021-09-12] MEDS: metFORMIN HCL 500 MG TABLET (FP) PO SCH ×2 (06:40→12:40)
[2021-09-12 07:10] VITALS: TEMP 98
[2021-09-12] MEDS ORDERED: PT OWN MED DRAWER 7, Y5N ONE (09:30)
[2021-09-12] MEDS: QUINAPRIL HCL 20 MG TABLET PO SCH (09:33)
[2021-09-12] MEDS: ESCITALOPRAM OXALATE 10 MG TABLET PO SCH (09:33)
[2021-09-12] MEDS: amLODIPine BESYLATE 10 MG TABLET (FP) PO SCH (09:33)
[2021-09-12] MEDS: RANOLAZINE E.R. 500 MG TABLET (FP) PO SCH (09:33)
[2021-09-12] MEDS: ASPIRIN 81 MG CHEWABLE TABLETS PO SCH (09:33)
[2021-09-12] MEDS: DONEPEZIL HCL 10 MG TABLET (FP) PO SCH (09:33)
[2021-09-12 14:14] VITALS: BP 126/64; PULSE 77
== END 2021-09-12 15:21 | disposition home or self-care (01) | DRG 918 ==
LOC: JER 11:12 → JERBED 14:43 → J8W 17:30
PROVIDERS: ADMIT Internal Medicine; ATTEND Internal Medicine
DX: T42.4X1A Poisoning by benzodiazepines, accidental (unintentional), initial encounter (principal); F13.20 Sedative, hypnotic or anxiolytic dependence, uncomplicated; R29.6 Repeated falls; G62.9 Polyneuropathy, unspecified; E11.40 Type 2 diabetes mellitus with diabetic neuropathy, unspecified; I10 Essential (primary) hypertension; F32.A Depression, unspecified; Y92.89 Other specified places as the place of occurrence of the external cause; N40.0 Benign prostatic hyperplasia without lower urinary tract symptoms; E66.9 Obesity, unspecified; Z68.26 Body mass index [BMI] 26.0-26.9, adult
CPT/HCPCS: 36415; 70450-TC; 71045-TC-FY; 72125-TC; 72131-TC; 73562-TC-LT-FY; 73562-TC-RT-FY; 80053; 81003; 82550; 82962; 83735; 84443; 84484; 85025; 85610; 85730; 87086; 93005; 93010; 99285-25; C9803; J0131; U0003; U0005

== ENCOUNTER 2022-08-11 15:23 | Emergency (ER) | payer OTHER ==
[2022-08-11 15:39] VITALS: TEMP 98.1; BMI 25.8
[2022-08-11] MEDS ORDERED: ACETAMINOPHEN 500 MG TABLET (FP) PO ONE (16:13)
[2022-08-11] MEDS ORDERED: ACETAMINOPHEN 325 MG TABLET (FP) ONE (16:14)
[2022-08-11] MEDS ORDERED: oxyCODONE HCL 5 MG TABLET PO ONE (16:57)
[2022-08-11] MEDS ORDERED: oxyCODONE HCL 5 MG TABLET ONE (17:12)
[2022-08-11] MEDS ORDERED: morphine CARPU-JECT 2 MG/1 ML DISP.SYRIN IM ONE (17:57)
[2022-08-11] MEDS ORDERED: KETOROLAC TROMETHAMINE 30 MG/1 ML VIAL IM ONE (17:57)
[2022-08-11] MEDS ORDERED: KETOROLAC TROMETHAMINE 30 MG/1 ML VIAL ONE (18:01)
[2022-08-11] MEDS ORDERED: morphine SULFATE 4 MG/ML VIAL ONE (18:01)
[2022-08-11 19:29] VITALS: BP 153/68; PULSE 79; RESP 16
== END 2022-08-11 19:25 | disposition home or self-care (01) ==
LOC: FER 15:23
PROC: 3E023NZ Introduction of Analgesics, Hypnotics, Sedatives into Muscle, Percutaneous Approach (ICD-10-PCS; principal; 2022-08-11)
PROC: 3E0233Z Introduction of Anti-inflammatory into Muscle, Percutaneous Approach (ICD-10-PCS; 2022-08-11)
DX: M25.562 Pain in left knee (principal)
CPT/HCPCS: 73562-TC-LT-FY; 99284-25

== ENCOUNTER 2023-01-20 13:20 | Emergency (ER) | payer OTHER ==
[2023-01-20 13:39] VITALS: BP 149/65; PULSE 45; RESP 16; TEMP 97.9; BMI 29.0
== END 2023-01-20 14:50 | disposition home or self-care (01) ==
LOC: FER 13:20 → SUPCPDRO 13:20 → FER 14:50
DX: S20.212A Contusion of left front wall of thorax, initial encounter (principal); W01.0XXA Fall on same level from slipping, tripping and stumbling without subsequent striking against object, initial encounter
CPT/HCPCS: 71101-TC-LT-FY; 99283-25

== ENCOUNTER 2024-03-25 04:08 | Day surgery (SDC) | payer OTHER ==
[2024-03-18 13:19] VITALS: BMI 28.5
[2024-03-25] MEDS ORDERED: PROMETHAZINE HCL 25 MG/1 ML VIAL IVPB PRN (07:13)
[2024-03-25] MEDS ORDERED: ONDANSETRON 4 MG/2 ML VIAL IVPUSH PRN (07:13)
[2024-03-25] MEDS ORDERED: oxyCODONE HCL 5 MG TABLET PO PRN ×2 (07:13→08:44)
[2024-03-25] MEDS ORDERED: LACTATED RINGERS SOLUTION 1,000 ML IV SCH (07:15)
[2024-03-25] MEDS ORDERED: MIDAZOLAM HCL 2 MG/2 ML SINGLE DOSE VIAL ONE (07:56)
[2024-03-25] MEDS ORDERED: ceFAZolin SODIUM 1 GM VIAL ONE (07:56)
[2024-03-25] MEDS ORDERED: FENTANYL CITRATE/PF 50 MCG/ML VIAL ONE (07:56)
[2024-03-25] MEDS: ceFAZolin SODIUM 1 GM VIAL IVPB ONE ×2 (07:57→08:03)
[2024-03-25] MEDS ORDERED: ELECTROLYTE-148 SOLN 1,000 ML IV SCH (08:45)
[2024-03-25 12:20] VITALS: BP 169/68; PULSE 54; RESP 18; TEMP 97.7
== END 2024-03-25 13:49 | disposition home or self-care (01) ==
LOC: JASU-SURG 04:08
PROVIDERS: ATTEND Urology
PROC: 0T7D8ZZ Dilation of Urethra, Via Natural or Artificial Opening Endoscopic (ICD-10-PCS; 2024-03-25)
PROC: 0TBB8ZZ Excision of Bladder, Via Natural or Artificial Opening Endoscopic (ICD-10-PCS; principal; 2024-03-25 08:00)
DX: C67.9 Malignant neoplasm of bladder, unspecified (principal); N35.819 Other urethral stricture, male, unspecified site
CPT/HCPCS: 82962; 88307-TC; 94760

== ENCOUNTER 2024-03-26 02:06 | Emergency (ER) | payer OTHER ==
[2024-03-26 02:15] VITALS: BP 150/78; PULSE 95; RESP 18; TEMP 98.8; BMI 27.4
== END 2024-03-26 03:30 | disposition home or self-care (01) ==
LOC: JER 02:06
DX: T83.84XA Pain due to genitourinary prosthetic devices, implants and grafts, initial encounter (principal); N48.89 Other specified disorders of penis
CPT/HCPCS: 99283-25

== ENCOUNTER 2024-03-26 13:18 | Observation (INO) | payer OTHER ==
[2024-03-26 13:33] VITALS: RESP 18
[2024-03-26 15:17] LABS: BASO % 0.4 % (0-2.0); EOS % 0.4 % (0-4.5); HEMOGLOBIN 10.2 GM/dL (11.7-16.9); LYMPH % 18.4 % (8-40); MCH 28.8 pg (25.7-33.7); MCHC 33.9 g/dl (32.0-35.9); MEAN CELL VOLUME 84.8 fl (80-96); MEAN PLT VOLUME 8.6 fl (7.5-11.1); MONO % 7.3 % (3.8-10.2); NEUT % 73.5 % (42.8-82.8); PLATELET COUNT 304 10^3/uL (134-434); RBC 3.54 M/mm3 (4.00-5.60); RDW 14.2 % (11.9-15.9); WHITE BLOOD COUNT 10.8 K/mm3 (4.0-10.0)
[2024-03-26] MEDS: DEXTROSE 5%-NORMAL SALINE 1,000 ML IV SCH (15:23)
[2024-03-26 15:40] LABS: POTASSIUM 4.2 mmol/L (3.5-5.1)
[2024-03-26 15:42] LABS: CALCIUM 8.9 mg/dL (8.5-10.1)
[2024-03-26 15:43] LABS: ALBUMIN 3.5 g/dl (3.4-5.0); BLOOD UREA NITROGEN 7.9 mg/dL (7-18)
[2024-03-26 15:46] LABS: CREATININE 0.9 mg/dL (0.55-1.3)
[2024-03-26 15:48] LABS: BILIRUBIN,TOTAL 0.6 mg/dL (0.2-1); TOT PROT 6.6 g/dl (6.4-8.2)
[2024-03-26] MEDS: SODIUM CHLORIDE 0.9% 500 ML INFUS.BAG IV ONE (19:04)
[2024-03-26 19:32] LABS: INR 1.09 (0.83-1.09); PROTHROMBIN TIME (PATIENT) 12.3 SEC (9.7-13.0)
[2024-03-26 19:34] LABS: ACTIVATED PTT 29.9 SECONDS (25.2-36.5)
[2024-03-26] MEDS ORDERED: ACETAMINOPHEN 1000 MG/100 ML BAG IVPB PRN (21:00)
[2024-03-26] MEDS: ATORVASTATIN CA 40 MG TABLET (FP) PO SCH (21:15)
[2024-03-26] MEDS: ACETAMINOPHEN 1000 MG/100 ML BAG IVPB ONE (21:16)
[2024-03-26] MEDS: INSULIN (LEVEMIR) 100 UNITS/ML UNITS SQ SCH (21:16)
[2024-03-26 23:18] VITALS: BMI 28.6
[2024-03-27 08:17] LABS: BASO % 0.6 % (0-2.0); EOS % 2.3 % (0-4.5); HEMATOCRIT 31.4 % (35.4-49); HEMOGLOBIN 10.4 GM/dL (11.7-16.9); LYMPH % 27.8 % (8-40); MCH 28.2 pg (25.7-33.7); MEAN CELL VOLUME 85.4 fl (80-96); MEAN PLT VOLUME 8.7 fl (7.5-11.1); MONO % 7.4 % (3.8-10.2); NEUT % 61.9 % (42.8-82.8); PLATELET COUNT 324 10^3/uL (134-434); RBC 3.68 M/mm3 (4.00-5.60); RDW 14.1 % (11.9-15.9); WHITE BLOOD COUNT 10.7 K/mm3 (4.0-10.0)
[2024-03-27 08:40] LABS: ALBUMIN 3.7 g/dl (3.4-5.0); BLOOD UREA NITROGEN 9.5 mg/dL (7-18); CALCIUM 9.1 mg/dL (8.5-10.1); MAGNESIUM 2.1 mg/dL (1.8-2.4)
[2024-03-27 08:43] LABS: CREATININE 0.9 mg/dL (0.55-1.3)
[2024-03-27 08:44] LABS: BILIRUBIN,TOTAL 0.9 mg/dL (0.2-1); TOT PROT 6.7 g/dl (6.4-8.2)
[2024-03-27 08:54] LABS: POTASSIUM 4.2 mmol/L (3.5-5.1)
[2024-03-27] MEDS ORDERED: INSULIN ASPART SLIDING SCALE (NOVOLOG) 1 VIAL SQ ONE (09:17)
[2024-03-27] MEDS: INSULIN (NOVOLOG) ASPART 100 UNITS/ML 10ML VIAL SQ SCH (09:54)
[2024-03-27] MEDS: VENLAFAXINE HCL 75 MG E.R. CAPSULES PO SCH (10:29)
[2024-03-27] MEDS: DONEPEZIL HCL 5 MG TABLET (FP) PO SCH (10:29)
[2024-03-27] MEDS: ENALAPRIL MALEATE 10 MG TABLET PO SCH (10:30)
[2024-03-27] MEDS: MINERAL OIL/PET HY-PHL TOPICAL OINTMENT 454 GM JAR TP SCH (16:41)
[2024-03-27] MEDS: BISACODYL 10 MG SUPP.RECT PR PRN (19:52)
[2024-03-28] MEDS ORDERED: ACETAMINOPHEN 325 MG TABLET (FP) PO PRN (08:12)
[2024-03-28 08:42] LABS: BASO % 0.4 % (0-2.0); EOS % 1.4 % (0-4.5); HEMATOCRIT 30.4 % (35.4-49); HEMOGLOBIN 10.5 GM/dL (11.7-16.9); LYMPH % 24.6 % (8-40); MCH 29.1 pg (25.7-33.7); MCHC 34.7 g/dl (32.0-35.9); MEAN PLT VOLUME 8.5 fl (7.5-11.1); MONO % 6.3 % (3.8-10.2); NEUT % 67.3 % (42.8-82.8); PLATELET COUNT 328 10^3/uL (134-434); RBC 3.62 M/mm3 (4.00-5.60); RDW 14.3 % (11.9-15.9); WHITE BLOOD COUNT 10.2 K/mm3 (4.0-10.0)
[2024-03-28 09:24] LABS: POTASSIUM 4.2 mmol/L (3.5-5.1)
[2024-03-28 09:27] LABS: ALBUMIN 3.5 g/dl (3.4-5.0); BLOOD UREA NITROGEN 12.2 mg/dL (7-18); CALCIUM 8.9 mg/dL (8.5-10.1)
[2024-03-28 09:31] LABS: CREATININE 0.7 mg/dL (0.55-1.3)
[2024-03-28 09:32] LABS: BILIRUBIN,TOTAL 0.7 mg/dL (0.2-1); TOT PROT 6.5 g/dl (6.4-8.2)
[2024-03-28 14:48] VITALS: BP 159/68; PULSE 76; TEMP 98.6
== END 2024-03-28 16:57 | disposition home or self-care (01) ==
LOC: JER 13:18 → JERBED 18:03 → J7W 20:39
PROVIDERS: ADMIT Internal Medicine
PROC: 3E033GC Introduction of Other Therapeutic Substance into Peripheral Vein, Percutaneous Approach (ICD-10-PCS; principal; 2024-03-26)
PROC: 3E033NZ Introduction of Analgesics, Hypnotics, Sedatives into Peripheral Vein, Percutaneous Approach (ICD-10-PCS; 2024-03-26)
PROC: 3E013VG Introduction of Insulin into Subcutaneous Tissue, Percutaneous Approach (ICD-10-PCS; 2024-03-26)
PROC: 3E0337Z Introduction of Electrolytic and Water Balance Substance into Peripheral Vein, Percutaneous Approach (ICD-10-PCS; 2024-03-26)
DX: Z46.6 Encounter for fitting and adjustment of urinary device (principal); G30.9 Alzheimer's disease, unspecified; I10 Essential (primary) hypertension; E78.00 Pure hypercholesterolemia, unspecified; E11.9 Type 2 diabetes mellitus without complications; N20.0 Calculus of kidney; N32.9 Bladder disorder, unspecified; I44.1 Atrioventricular block, second degree; Z98.890 Other specified postprocedural states; Z87.891 Personal history of nicotine dependence; Z85.46 Personal history of malignant neoplasm of prostate; R31.9 Hematuria, unspecified; Z86.73 Personal history of transient ischemic attack (TIA), and cerebral infarction without residual deficits
CPT/HCPCS: 36415; 80053; 82962; 83735; 84100; 85025; 85610; 85730; 93005; 93010; 96361; 96365; 96372; 96375; 99285-25; G0378; J0131